=== PATIENT | male | born 1980 | race Caucasian/White ===

== ENCOUNTER 2019-11-19 08:03 | Outpatient (CLI) | payer OTHER, SELFPAY ==
--- NOTE | ~2019-11-19 | MR_ITS ---
EXAMINATION: MR shoulder RT wo con DATE: 11/19/2019 08:48 INDICATION: Posttraumatic right shoulder pain, weakness and instability. Osteoarthritis. TECHNIQUE: Magnetic resonance imaging (MRI) of the right shoulder was performed without intravenous contrast. Se quences included axial PD-weighted FS FSE, coronal oblique PD-weighted FS FSE, coronal oblique T2-charla ghted FS FSE, sagittal PD-weighted FS FSE, and sagittal T1-weighted SE. COMPARISON: Right shoulder radiographs dated 11/18/2019 FINDINGS: Coracoacromial arch: The acromion undersurface is minimally curved in morphology (type I-II). The coracoacromial ligament is normal. Acromioclavicular joint is normal. Rotator cuff: Mild tendinopathy without discrete tear at the distal supraspinatus tendon and conjoined portion of t he supraspinatus and infraspinatus tendons. The teres minor and subscapularis tendons are normal. Nor mal rotator cuff muscle bulk and signal. 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 There is degeneration of the anteroinferior labrum which is diminutive with carter rphous increased signal. More clearly defined linear fluid filled tear at the 1:00-11:00 position of the superior glenoid labrum with more macerated appearing tear centered at the 10:30 position of the posterior superior labrum. There are foci of susceptibility artifact along the inferior rim of the gl enoid suggesting possible prior labral repair. Region of full/near full-thickness cartilage loss daisha g the anteroinferior quadrant of the glenoid with mild underlying subarticular cystic change. Additio nal partial thickness cartilage loss involving greater than 50% the cartilage thickness along the inf eromedial aspect of the humeral head are also tiny marginal osteophytes. Mild tendinopathy at the gle nohumeral and curving of the long head of the biceps tendon which is otherwise normal. Fluid: Physiologic amount of fluid in the glenohumeral joint space. Mild synovitis at the posterior, axillar y and deep subscapular recess of the joint space. Small amount of fluid in the long head biceps tendo n sheath which is at the upper limits of normal and cannot exclude mild bicipital tenosynovitis..No l oose osteochondral bodies. Small amount of fluid in the subacromial/subdeltoid bursa consistent with mild bursitis. Bones: No fracture or pathologic marrow replacing process. IMPRESSION: 1. Mild to moderate glenohumeral osteoarthritis with regional high-grade chondral malacia along the a nteroinferior glenoid with change of likely prior inferior labral repair which appears grossly intact with mild degeneration anteroinferiorly. Correlate with surgical history. 2. 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 3. Mild tendinopathy without discrete tear of the supraspinatus and conjoined supraspinatus/infraspin atus tendons. Reviewed, dictated and finalized at location A. O SUPERVISOR IMPRESSION: 1. Mild to moderate glenohumeral osteoarthritis with regional high-grade chondr al malacia along the anteroinferior glenoid with change of likely prior inferio r labral repair which appears grossly intact with mild degeneration anteroinfer iorly. Correlate with surgical history. 2. Tear of the superior to posterior superior glenoid labrum with likely develo pmental variant Stephanie complex conifer absence of the anterosuperior labrum. 3. Mild tendinopathy without discrete tear of the supraspinatus and conjoined s upraspinatus/infraspinatus tendons.
== END 2019-11-19 08:04 ==
PROVIDERS: Visit Provider Orthopaedic Surgery
DX: M19.111 Post-traumatic osteoarthritis, right shoulder (principal); S43.431A Superior glenoid labrum lesion of right shoulder, initial encounter; X58.XXXA Exposure to other specified factors, initial encounter
CPT/HCPCS: 73221

== ENCOUNTER 2020-11-13 14:16 | Outpatient (CLI) | payer BC, SELFPAY ==
[2020-11-13 14:45] LABS: Hematocrit 42.4 % (42.0-52.0); Hemoglobin 14.8 g/dL (14.0-18.0)
== END 2020-11-13 14:17 | disposition home or self-care (01) ==
LOC: ANHSURGERY 14:20
PROVIDERS: Anesthesiology; Visit Provider Orthopaedic Surgery
DX: Z86.2 Personal history of diseases of the blood and blood-forming organs and certain disorders involving the immune mechanism (principal)
CPT/HCPCS: 36415; 85014; 85018

== ENCOUNTER → 2020-11-14 00:38 | Outpatient (CLI) | payer BC, SELFPAY ==
[2020-11-14 20:38] LABS: SARS-CoV-2 RNA PCR Negative
== END ==
PROVIDERS: Visit Provider Orthopaedic Surgery
DX: Z01.812 Encounter for preprocedural laboratory examination (principal); Z20.822 Contact with and (suspected) exposure to COVID-19
CPT/HCPCS: C9803; U0003; U0005

== ENCOUNTER 2020-11-17 01:33 | Day surgery (SDC) | payer BC, SELFPAY ==
[2020-11-12 16:15] VITALS: BMI 26.6
--- NOTE | 2020-11-16 11:03 | WPDANESEPPF ---
Anes - Initial Pre Proc Eval Procedure: Operation Date: 11/17/20 12:00 Proposed Procedures p Arthroscopic Debridement Of Right Shoulder And Labrum - Jared Junior MD s Mini Open Bicep Tenodesis, Possible Microfracture, Proceed As Indicated - Jared Junior MD Date/Time: 11/16/20 11:03 Surgeon: Jared Junior MD Pre Op Diagnosis: Post Traumatic OA Right Shoulder Patient Data Age: 40 Gender: M Height: 1.73 m Weight: 79.38 kg Allergies Allergy/AdvReac Type Severity Reaction Status Date / Time No Known Allergies Allergy Verified 11/17/20 10:52 Home Medications Medication Instructions Recorded Confirmed Type acetaminophen 500 mg tablet 1,000 mg PO Q6H PRN 11/18/19 11/12/20 History naproxen sodium 220 mg capsule 440 mg PO BID PRN 11/18/19 11/12/20 History [id number]-vit K 1 tablet PO DAILY 11/12/20 11/12/20 History [Adults Multivitamin] omeprazole 20 mg PO DAILY PRN 11/12/20 11/12/20 History Patient hx anesthesia problems: none Family hx anesthesia problems: none PMFSH Past Medical History Medical History Osteoarthritis of right shoulder Post-traumatic osteoarthritis, right shoulder SLAP lesion of right shoulder Surgical History Surgical History History of lumbar fusion (~11/2016) History of shoulder surgery (~1996) Family History Family History Grandparent Family history of Alzheimer's disease Family history of coronary artery disease Mother Patient's mother is in good health Other Carcinoma of colon Family history of gastrointestinal disorder Family history of ulcerative colitis Social History Social History Smoking packs per day: 1 Smoking cigarettes per day: 20.0 Years smoked: 15 Smoking pack-years: 15.00 Smoking status: Former smoker Tobacco type: cigarettes and e-cigarettes/vaping Additional smoking assessment comments: currently vapes Alcohol intake: current Drinks per week: 6 Alcohol use details: beer Substance use: never Last use: 10-09-2015 Living arrangements: alone Spiritual care concerns: No Anes - Eval Final PreProcedure Day of Procedure 11/16/20 11:03 Patient weight: overweight Heart: regular rate and rhythm Lungs: clear to auscultation and normal air movement Airway: Mallampati scale class II Neurological: alert and oriented Last oral intake: >/= 8 hours ASA classification: II Emergent: no Anesthetic plan: proceed Anesthesia type and monitoring: general LMA and ETT Informed Consent: The patient's anesthetic plan and its attendant risks and benefits were discussed with the patient/family/POA. Questions were solicited and answers provided to the satisfaction of the patient/family/POA.
--- NOTE | 2020-11-16 11:03 | WPDANESPNB ---
Anes - Peripheral Nerve Block Date/Time: 11/16/20 11:03 I have discussed with the patient/family/POA the placement of a peripheral nerve block for post-operative pain management, including associated risks, benefits, complications, and side effects. Alternative methods of post-operative analgesia were detailed. Questions were solicited and answers provided to the satisfaction of the patient/family/POA. Time-Out: A pre-procedural Time-Out was completed immediately before starting the procedure and confirmed: Patient Identification, Site, Procedure, Patient Position and the Availability of Requisite Equipment. Clinical Indications: Acute post-operative pain management requested by the operative surgeon. Nerve Block Insertion Note Anes-nerve block: supraclavicular right Patient position: supine Skin prep: chlorhexidine Needle: 22 gauge, stimulating, insulated echogenic needle. Needle length: 80 mm Technique: ultrasound (in plane) Injectate: bupivacaine 0.5% with epi 5 mcg/ml (20cc) Observations: tolerated well Complications: none Procedure start time:: 1125 Procedure end time:: 1130
[2020-11-17] VITALS (8 sets, daily range): BP systolic 102–131; BP diastolic 58–78; PULSE 53–67; RESP 12–20; TEMP 36.5–36.8; O2SAT 95–100
--- NOTE | 2020-11-17 07:13 | WPDHPUPDATE1 ---
History and Physical Update Update Date/Time: 11/17/20 07:13 History and Physical has been reviewed, including an updated exam of the patient. There are NO changes in the patient's condition. Risks, benefits, and alternatives have been discussed and questions answered. Patient agrees to proceed with procedure.
[2020-11-17] MEDS: ACETAMINOPHEN 500 MG TABLET 1000 MG PO (10:36)
[2020-11-17] MEDS: KETOROLAC 15 MG/ML VIAL (*BKC) IV PUSH (10:37)
[2020-11-17] MEDS: LACTATED RINGERS 1,000 ML 30 ML IV CONT ×2 (10:40→14:04)
[2020-11-17] MEDS: ceFAZolin 2 GM/D5W 50 ML 2 GM/50 ML BAG IVPB (11:44)
--- NOTE | 2020-11-17 14:07 | PM.PROC ---
Procedure Note - Detailed Date of procedure: 11/17/20 Pre-op diagnosis: Post Traumatic OA Right Shoulder Post-op diagnosis: other (1. Posttraumatic shoulder arthritis 2. Slap tear with biceps tendinosis 3.Impingement syndrome shoulder) Procedure performed: 1. Arthrosocopic labral debridement including anterior and posterior labrum, and glenoid chondroplasty with microfracture 2. Arthroscopic subacromial decompression. 3. Mini open biceps tenodesis. Description of procedure: Posttraumatic arthritis status post Bankart repair many years ago. The arthroscopic findings were consistent with the MRI. Examination under anesthesia was consistent with the preoperative clinical examination. No gross instability, nor remarkable abnormal findings observed. Exposed bone with arthritis on the glenoid primarily at the anterior inferior quadrant. Daky-gp-[id number] changes on the humerus. Extensive degenerative tearing of the anterior posterior and superior labrum. Biceps was released and the labrum was carefully debrided. Microfracture was performed at the anterior inferior glenoid. Rotator cuff was of in very good shape both on the articular and bursal side. The subscapularis was normal. No evidence of subcoracoid impingement. Moderate synovitis posterior inferior. Partial synovectomy was performed. Overall the capsule was not overly contracted and no further capsule releases were required. Bursectomy was performed with subacromial decompression. During the mini open biceps it was clear that the biceps was very flattened and distorted at the intra-articular/ intertubercular area. Subpectoral tenodesis was performed through bone tunnels. [facility] Surgeon: Jared Junior MD Diesel Machinist: Sonja Graves PA-C Estimated blood loss (mL): 10 Complications: None Condition: stable Disposition: PACU Findings: Physician golf player assistant, Sonja Graves PA-C, required for surgery; including patient positioning, draping, arthroscopic camera operation, maintaining instrument position, suture shuttle retrieval, wound closure, and dressing and sling placement. Operative details: Patient was given an interscalene block in the holding area. Preoperative antibiotics were given. The patient was brought to the operating room. Careful positioning in the beach chair position was accomplished. The head neck were carefully positioned. The shoulder was examined. The shoulder was prepped and draped in the usual sterile fashion. Standard posterior and anterior arthroscopic portals were established. The shoulder was inspected. Degenerative findings as described above. Labral debridement 360? with microfracture and chondroplasty of the anterior inferior glenoid. Grade 2/Iii chondromalacia on the humerus. Primarily with blistering and thinning of the cartilage. Hill-Sachs defect and irregularity at the posterior humeral head confirmed. The rotator cuff was largely normal. The subscapularis was normal. A window at the rotator interval was created. There was no evidence of impingement on the coracoid with internal rotation and adduction. The biceps was released from the superior labrum. Attention was turned to the subacromial space. A complete bursectomy was performed. An accessory lateral portal was created. The acromion was clearly visualized. Careful acromioplasty was performed utilizing views from both lateral and posterior. Loose bone fragments were carefully irrigated from the joint. The arthroscopic instruments were removed. An axillary incision was created at the pectoralis major insertion. The interval between the pectoralis and the short head of the biceps was dissected. The long head was identified. A retractor was placed at the pectoralis. The biceps was delivered into the wound. A Krackow stitch was placed using #2 Orthocord suture at the musculotendinous junction. The 7.5 mm acInOpen reamer was used to ream a unicortical hole just proximal to the pect
[2020-11-17] MEDS: fentaNYL CITRATE INJ (*CRX) 100 MCG/2 ML VIAL 25 MCG IV PUSH ×4 (14:19→14:26)
[2020-11-17] MEDS: HYDROmorphone HCL INJ (*CRX) 1 MG/ML SYR 0.25 MG IV PUSH ×2 (14:27→14:32)
== END 2020-11-17 16:05 | disposition home or self-care (01) ==
PROVIDERS: Visit Provider Orthopaedic Surgery
PROC: (CPT 29805; principal; 2020-11-17 12:00)
PROC: (CPT 24341; 2020-11-17 12:00)
DX: M19.111 Post-traumatic osteoarthritis, right shoulder (principal); M75.81 Other shoulder lesions, right shoulder; M75.41 Impingement syndrome of right shoulder; G89.18 Other acute postprocedural pain; Z98.1 Arthrodesis status; F17.290 Nicotine dependence, other tobacco product, uncomplicated
CPT/HCPCS: 29823; 23430; 64415; A4565; A9270; J0690; J1100; J1170; J1885; J2250; J2405; J2704; J2710; J3010; J7120

== ENCOUNTER → 2021-02-25 11:04 | Outpatient (REF) | payer BC, SELFPAY | LOC: ANHLAB 11:04 | PROVIDERS: Visit Provider Nurse Practitioner | DX: L72.0 Epidermal cyst (principal) | CPT/HCPCS: 88304 ==

== ENCOUNTER 2021-06-30 14:39 | Outpatient (CLI) | payer BC, SELFPAY ==
[2021-06-30 19:32] LABS: Hematocrit 22.4 % (42.0-52.0); Mean Corpuscular HGB Conc 26.8 g/dl (32-36); Mean Corpuscular Hemoglobin 15.7 pg (26-34); Mean Corpuscular Volume 58.6 fl (80-100); Mean Platelet Volume 9.9 fl (7.4-10.4); Platelet Count Result 326 k/mm3 (150-375); Red Blood Count 3.82 M/mm3 (4.6-6.20); Red Cell Distribution Width 20.4 % (11.5-14.5); White Blood Count 4.7 K/mm3 (4.5-10.0)
[2021-06-30 19:40] LABS: Alanine Aminotransferase 14 U/L (4-50); Albumin Level 4.6 g/dL (3.5-5.1); Alkaline Phosphatase 96 U/L (38-126); Anion Gap 9 mmol/L (8-16); Aspartate Amino Transferase 31 U/L (17-59); Bilirubin,Total 0.5 mg/dL (0.2-1.3); Blood Urea Nitrogen 5 mg/dL (9-20); Calcium 9.3 mg/dL (8.4-10.2); Carbon Dioxide 27 mmol/L (22-30); Chloride 102 mmol/L (98-107); Cholesterol 176 mg/dL (0-200); Estimated Glomerular Filt Rate > 60; Glucose 101 mg/dL (65-110); HDL Direct 79 mg/dL; Potassium 4.2 mmol/L (3.4-5.0); Sodium 138 mmol/L (137-145); Triglycerides 92 mg/dL (<150)
[2021-06-30 19:51] LABS: LDL Cholesterol Direct 81 mg/dL
== END 2021-06-30 14:40 | disposition home or self-care (01) ==
LOC: ANHBWCLAB 14:40
PROVIDERS: PCP Family Medicine; Visit Provider Family Medicine
DX: F41.9 Anxiety disorder, unspecified (principal); Z00.00 Encounter for general adult medical examination without abnormal findings; K62.5 Hemorrhage of anus and rectum
CPT/HCPCS: 36415; 80053; 80061; 82607; 84443; 85027

== ENCOUNTER 2021-07-01 14:47 | Observation (INO) | payer BC, SELFPAY ==
[2021-07-01] VITALS (17 sets, daily range): BP systolic 120–148; BP diastolic 63–87; PULSE 64–98; RESP 16–20; TEMP 35.9–37.1; O2SAT 98–100; BMI 26.3
--- NOTE | ~2021-07-01 | NM_ITS ---
EXAMINATION: NM GI bleeding DATE: 07/02/2021 11:12 INDICATION: Gastrointestinal hemorrhage. TECHNIQUE: 25.8 mCi Tc 99m in vitro labeled red cells was administered intravenously. Scintigraphic images of the abdomen were obtained for one hour. COMPARISON: None. FINDINGS: No pattern of abnormal activity is seen in the abdomen or pelvis to suggest gastrointestina l hemorrhage. IMPRESSION: 1. No evidence of active gastrointestinal hemorrhage. Reviewed, dictated and finalized at location A.
[2021-07-01 15:29] LABS: Basophils Absolute Auto 0.1 K/mm3 (0.0-0.1); Basophils Percent Auto 1.1 % (0.2-1.2); Eosinophils Absolute Auto 0.2 K/mm3 (0-0.3); Immature Granulocyte Absolute 0.03 K/mm3 (0.00-0.031); Immature Granulocyte Percent A 0.5 % (0-0.5); Lymphocytes Absolute Auto 2.18 K/mm3 (0.9-3.2); Lymphocytes Percent Auto 34.4 % (18.3-44.2); Mean Corpuscular HGB Conc 27.4 g/dl (32-36); Mean Corpuscular Volume 58.5 fl (80-100); Monocytes Absolute Auto 0.7 K/mm3 (0.1-0.6); Monocytes Percent Auto 10.6 % (2.6-8.5); Neutrophils Absolute Auto 3.2 K/mm3 (1.3-6.7); Neutrophils Percent Auto 50.4 % (45.5-73.1); Platelet Count Result 258 k/mm3 (150-375); Red Blood Count 3.18 M/mm3 (4.6-6.20); Red Cell Distribution Width 19.9 % (11.5-14.5); White Blood Count 6.3 K/mm3 (4.5-10.0)
[2021-07-01 15:35] LABS: Hematocrit 18.6 % (42.0-52.0); Hemoglobin 5.1 g/dL (14.0-18.0)
[2021-07-01 15:38] LABS: Anion Gap 8 mmol/L (8-16); Blood Urea Nitrogen 3 mg/dL (9-20); Calcium 8.5 mg/dL (8.4-10.2); Carbon Dioxide 25 mmol/L (22-30); Chloride 97 mmol/L (98-107); Estimated CRCL calculation 81 ml/min; Estimated Glomerular Filt Rate > 60; Glucose 103 mg/dL (65-110); Potassium 3.1 mmol/L (3.4-5.0); Sodium 130 mmol/L (137-145)
[2021-07-01 16:07] LABS: Iron < 10 ug/dL (49-181)
[2021-07-01 16:17] LABS: Percent Iron Saturation 2 % (20-50)
--- NOTE | 2021-07-01 16:20 | ED.RECABL ---
HPI - Recheck/Abnormal Lab/Rx General Chief Complaint: Recheck/Abnormal Lab/Rx Stated Complaint: sent for blood transfusion Time Seen by Provider: 07/01/21 15:09 Source: patient Mode of arrival: ambulatory Limitations: no limitations History of Present Illness HPI narrative: 41-year-old male Here for follow-up lab draw from yesterday showing low hemoglobin He has a long history of anemia which has occasionally required blood transfusions He reports that he has had upper and lower endoscopies to evaluate this in the past and apart from a hemorrhoid and some esophageal inflammation nothing else has been found as far as he knows He also has had a coagulopathy in the past, the cause of which appears to have been a little obscure as well, and got treated with vitamin K and FFP He had a new patient appointment yesterday and was called yesterday evening due to a low hemoglobin of 6 and asked to come to the ED which she is doing now today He does not feel ill, complaining only of perhaps mild fatigue He has not had any hematemesis, any melena, or any hematochezia He does not complain of any abdominal symptoms or distress Related Data Home Medications Medication Instructions Recorded Confirmed acetaminophen 500 mg tablet 1,000 mg PO Q6H PRN 11/18/19 02/11/21 Adults Multivitamin 1 tablet PO DAILY 11/12/20 02/11/21 omeprazole 20 mg PO DAILY PRN 11/12/20 02/11/21 Allergies Allergy/AdvReac Type Severity Reaction Status Date / Time No Known Allergies Allergy Verified 06/30/21 13:52 Review of Systems Review of Systems: All systems reviewed & are unremarkable except as noted in HPI and below Constitutional: Constitutional: Reports no additional constitutional complaints, Denies chills, Denies fever(s) and Denies headache(s) Eyes: Eyes: Reports no additional eye complaints and Denies change in vision ENT: Denies headache(s) and Denies sore throat Cardiovascular: Cardiovascular: Denies chest pain and Denies dyspnea Respiratory: Respiratory: Denies cough and Denies dyspnea Gastrointestinal: Gastrointestinal: Denies abdominal pain, Denies diarrhea and Denies vomiting Genitourinary: Genitourinary: Denies dysuria and Denies urinary frequency Musculoskeletal: Musculoskeletal: Denies deformity, Denies arthralgias, Denies joint swelling and Denies numbness Integumentary/Breasts: Skin/Breast: Denies rash and Denies wounds Neurologic: Denies headache(s), Denies focal weakness and Denies numbness Psychiatric: Psychiatric: Reports no additional psychiatric complaints Endocrine: Endocrine: Reports no additional endocrine complaints Hematologic/Lymphatic: Hematologic/Lymphatic: Reports no additional hematologic/lymphatic complaints Allergic/Immunologic: Allergic/Immunologic: Reports no additional allergic/immunologic complaints PMF Past Medical History Medical History Osteoarthritis of right shoulder Post-traumatic osteoarthritis, right shoulder SLAP lesion of right shoulder Surgical History Surgical History History of lumbar fusion (~11/2016) History of shoulder surgery (~1996) Family History Family History Grandparent Family history of Alzheimer's disease Family history of coronary artery disease Mother Patient's mother is in good health Other Carcinoma of colon Family history of gastrointestinal disorder Family history of ulcerative colitis Social History Social History Smoking packs per day: 1 Smoking cigarettes per day: 20.0 Years smoked: 15 Smoking pack-years: 15.00 Smoking status: Former smoker Tobacco type: cigarettes and e-cigarettes/vaping Additional smoking assessment comments: currently vapes Alcohol intake: current Drinks per week: 6 Alcohol use details: be
[2021-07-01 16:25] LABS: Hypochromasia 3+ (NORMAL); Platelet Estimate Adequate (Adequate)
[2021-07-01 16:27] LABS: Poikilocytosis 1+ (NORMAL); Schistocytes 1+ (NORMAL); Sickle Cells 1+ (NORMAL)
[2021-07-01 16:35] LABS: INR 1.5; Prothrombin Time 17.9 Seconds (11.1-14.7)
[2021-07-01 16:37] LABS: Partial Thromboplastin Time 31.1 SECONDS (22.3-36.8)
[2021-07-01 16:45] LABS: Ferritin 7.03 ng/mL (17.9-464); Immature Reticulocyte Fraction 7.8 % (3.0-15.9); Reticulocyte Hemoglobin Conten 14.4 pg (28.2-35.7); Reticulocyte Percent 1.11 % (0.7-4.3); Reticulocytes Absolute 0.03 B/L (32.2-175.7)
[2021-07-01] MEDS: PANTOPRAZOLE SODIUM IV 40 MG VIAL 80 MG IV PUSH (16:49)
[2021-07-01] MEDS: POTASSIUM CHLORIDE 20 MEQ PACKET (FOR LIQUID) 40 MEQ PO (17:54)
[2021-07-01] MEDS: SODIUM CHLORIDE 0.9% IV 250 ML 30 ML IV CONT (17:55)
[2021-07-01] MEDS: TUBING, BLOOD SET 1 EACH XX (17:55)
[2021-07-01] MEDS: POTASSIUM CHLORIDE 20 MEQ PACKET (FOR LIQUID) 40 MEQ (17:55)
[2021-07-01] MEDS: PHYTONADIONE INJ 10 MG/ML AMP IM (18:16)
--- NOTE | 2021-07-01 19:20 | PM.IMHP ---
H&P: HPI History of Present Illness Date/Time: 07/01/21 19:20This is a 41-year-old male patient who has had a past medical history of having anemia with blood transfusions in the past. The patient stated that he went for an office visit to establish care with a new primary care doctor in they kevyn some labs and called him late last night tell him that his hemoglobin was low. The patient has had an os could PEs in the past. In the past he has been admitted for coagulopathy and was given vitamin K and FFP. The patient also has been having occasional bloody stool. He has been treated for iron deficiency anemia and has had some hemorrhoids as well. Several years ago it was felt that his coagulopathy was due to using K2 however the patient states that he no longer uses the synthetic marijuana. The patient has no abdominal pain but is very anxious. He stated that his legs for very restless and he has difficulty sleeping. Patient's hemoglobin was noted to be 5.1 hematocrit 18.6. He is receiving a blood transfusion At this point. His ferritin is low at 7.03 iron is low at 10 iron saturation is low at 2. the patient stated that he takes omeprazole for gastritis but does not take any iron. His potassium was found to be 3.1 and was supplemented in the emergency room. The patient's sodium was also 130. Patient was given IV Protonix,and potassium, Chief Complaint: Abnormal lab with anemia Review of Systems Review of Systems: All systems reviewed & are unremarkable except as noted in HPI and below Constitutional: Constitutional: Reports as per HPI and Reports no additional constitutional complaints Eyes: Eyes: Reports as per HPI and Reports no additional eye complaints ENT: Reports system reviewed and no additional complaints, except as documented and Reports Normal hearing present Cardiovascular: Cardiovascular: Reports no additional cardiovascular complaints Respiratory: Respiratory: Reports no additional respiratory complaints and Reports no additional respiratory complaints Gastrointestinal: Gastrointestinal: Reports as per HPI and Reports no additional gastrointestinal complaints Musculoskeletal: Musculoskeletal: Reports no additional musculoskeletal complaints Integumentary/Breasts: Skin/Breast: Reports system reviewed and no additional complaints, except as docu and Reports as per HPI Neurologic: Reports system reviewed and no additional complaints, except as documented, Reports as per HPI and Reports Normal hearing present Psychiatric: Psychiatric: Reports no additional psychiatric complaints and Reports as per HPI Endocrine: Endocrine: Reports no additional endocrine complaints Hematologic/Lymphatic: Hematologic/Lymphatic: Reports no additional hematologic/lymphatic complaints Allergic/Immunologic: Allergic/Immunologic: Reports no additional allergic/immunologic complaints [facility] Past Medical History Medical History (Updated 07/01/21 @ 19:54 by Christine Salomon NP) Anxiety Osteoarthritis of right shoulder Post-traumatic osteoarthritis, right shoulder SLAP lesion of right shoulder Surgical History Surgical History (Updated 07/01/21 @ 19:35 by Christine Salomon NP) History of lumbar fusion (~11/2016) History of removal of pigmented skin lesion History of shoulder surgery (~1996) right neck Family History Family History Grandparent Family history of Alzheimer's disease Family history of coronary artery disease Mother Patient's mother is in good health Other Carcinoma of colon Family history of gastrointestinal disorder Family history of ulcerative colitis Social History Social History (Updated 07/01/21 @ 19:38 by Christine Salomon NP) Social History: the patient stated that he quit smoking cigarettes but he still vapes. The patient uses marijuana. The patient lives with his significant other. He has 1 son. His desires are to be a full code and
--- NOTE | 2021-07-01 19:56 | ADMGEN ---
This patient, Rogerio Reyes, was admitted to IMU Room 204-01. Patient/family oriented to hospital policies and general routines including ID bracelet, bed and alarms, visiting hours, pain management, procedures, bathroom and other care routines, personal items, smoking policy, room service/diet, and visiting hours. Information on how to activate the Rapid Response Team has been discussed. Patient/Family are encouraged to report perceived risks to care and to ask questions if they do not understand what they are told or what they should do.
[2021-07-01] MEDS: ALPRAZolam (*CRX) 0.25 MG TABLET PO (20:04)
[2021-07-02] VITALS (8 sets, daily range): BP systolic 126–154; BP diastolic 64–88; PULSE 55–83; RESP 20; TEMP 36.3–36.8; O2SAT 98–100
[2021-07-02 00:50] LABS: Hematocrit 24.1 % (42.0-52.0); Hemoglobin 7.2 g/dL (14.0-18.0)
[2021-07-02] MEDS: traZODone HCL 50 MG TABLET PO (00:57)
[2021-07-02 01:01] LABS: Anion Gap 8 mmol/L (8-16); Blood Urea Nitrogen 5 mg/dL (9-20); Calcium 8.9 mg/dL (8.4-10.2); Carbon Dioxide 23 mmol/L (22-30); Chloride 105 mmol/L (98-107); Estimated CRCL calculation 90 ml/min; Estimated Glomerular Filt Rate > 60; Glucose 98 mg/dL (65-110); Potassium 3.8 mmol/L (3.4-5.0); Sodium 136 mmol/L (137-145)
[2021-07-02 05:11] LABS: Basophils Absolute Auto 0.1 K/mm3 (0.0-0.1); Basophils Percent Auto 1.5 % (0.2-1.2); Eosinophils Absolute Auto 0.2 K/mm3 (0-0.3); Eosinophils Percent Auto 2.7 % (0-4.4); Hematocrit 26.4 % (42.0-52.0); Hemoglobin 7.5 g/dL (14.0-18.0); Immature Granulocyte Absolute 0.01 K/mm3 (0.00-0.031); Immature Granulocyte Percent A 0.2 % (0-0.5); Lymphocytes Absolute Auto 2.22 K/mm3 (0.9-3.2); Lymphocytes Percent Auto 33.7 % (18.3-44.2); Mean Corpuscular HGB Conc 28.4 g/dl (32-36); Mean Corpuscular Hemoglobin 18.7 pg (26-34); Mean Corpuscular Volume 65.8 fl (80-100); Mean Platelet Volume 9.5 fl (7.4-10.4); Monocytes Absolute Auto 0.6 K/mm3 (0.1-0.6); Monocytes Percent Auto 8.5 % (2.6-8.5); Neutrophils Absolute Auto 3.5 K/mm3 (1.3-6.7); Neutrophils Percent Auto 53.4 % (45.5-73.1); Platelet Count Result 265 k/mm3 (150-375); Red Blood Count 4.01 M/mm3 (4.6-6.20); Red Cell Distribution Width 25.7 % (11.5-14.5); White Blood Count 6.6 K/mm3 (4.5-10.0)
[2021-07-02 05:17] LABS: Magnesium 2.1 mg/dL (1.6-2.3)
[2021-07-02 05:18] LABS: Lactic Acid Reflex 1.1 mmol/L (0.7-2.1)
[2021-07-02 05:53] LABS: Hypochromasia 2+ (NORMAL); Microcytosis 2+ (NORMAL); Platelet Estimate Adequate (Adequate)
[2021-07-02 06:22] LABS: Folic Acid 4.6 ng/mL (2.76->20)
--- NOTE | 2021-07-02 07:36 | PM.IMPN ---
Progress Note: A&P Assessment and Plan (1) Severe anemia: Code(s): D64.9 - Anemia, unspecified Status: Acute (2) Anxiety: Code(s): F41.9 - Anxiety disorder, unspecified Status: Chronic (3) Tobacco abuse: Code(s): Z72.0 - Tobacco use Status: Acute (4) Hypokalemia: Code(s): E87.6 - Hypokalemia Status: Acute Additional Plan unclear source of anemia - apparently pt has had EGD & colonoscopy in past which did not reveal bleeding source. Noted nuclear GI scan ordered, follow results. Microcytic Anemia. GI and Heme/Onc on consult. Will attempt to obtain records from prior imaging and potentially discuss scope with patient - he was previously not open to this. Time Spent With Patient Time with patient: less than 15 minutes Subjective Date/time seen: 07/02/21 07:36 no acute complaints resting comdortably Review of Systems Review of Systems: All systems reviewed & are unremarkable except as noted in HPI and below Exam Neck: Neck: no JVD Resp: Effort & Inspection: normal respiratory effort Auscultation: clear to auscultation bilaterally Cardio: Rate: regular rate Rhythm: regular rhythm GI: GI Palp: Yes Soft to palpation and No Tenderness to palpation present (GI) Objective Data Vital Signs Vital Signs: Vital Signs - 24 hr 07/01/21 14:54 07/01/21 17:43 07/01/21 17:52 Temperature 98.8 F 97.8 F Pulse Rate 80 71 72 Respiratory Rate 18 18 18 Blood Pressure 128/70 121/75 120/76 Pulse Oximetry 99 100 100 07/01/21 17:59 07/01/21 18:02 07/01/21 18:22 Temperature 98.1 F Pulse Rate 78 Respiratory Rate 16 Blood Pressure 123/76 123/76 125/85 Pulse Oximetry 98 07/01/21 18:31 07/01/21 18:46 07/01/21 19:30 Temperature 98.4 F Pulse Rate 64 Respiratory Rate 20 Blood Pressure 143/73 H 122/79 138/64 Pulse Oximetry 100 07/01/21 20:00 07/01/21 20:44 07/01/21 21:02 Temperature 97 F L 97.6 F Pulse Rate 78 78 98 Respiratory Rate 20 20 Blood Pressure 133/66 121/77 Pulse Oximetry 100 100 07/01/21 22:00 07/01/21 22:02 07/01/21 23:02 Temperature 96.6 F L 97.0 F L Pulse Rate 72 78 78 Respiratory Rate 20 20 Blood Pressure 148/67 H 137/87 Pulse Oximetry 99 100 07/01/21 23:06 07/01/21 23:29 07/02/21 00:00 Temperature 97.0 F L 97 F L Pulse Rate 78 78 62 Respiratory Rate 20 20 20 Blood Pressure 137/87 144/63 H Pulse Oximetry 100 100 100 07/02/21 02:00 07/02/21 03:27 07/02/21 04:00 Temperature 98.0 F Pulse Rate 60 55 L 62 Respiratory Rate 20 20 Blood Pressure 126/68 Pulse Oximetry 100 100 07/02/21 05:30 Temperature Pulse Rate 66 Respiratory Rate Blood Pressure Pulse Oximetry Intake/Output Intake/Output: Intake & Output 06/29/21 06/30/21 07/01/21 07/02/21 23:59 23:59 23:59 23:59 Intake Total 700 150 Output Total 500 500 Balance 200 -350 Meds/Results Medications: Active Medications Generic Name Dose Route Start Last Admin Trade Name Freq PRN Reason Stop Dose Admin Acetaminophen 650 mg 07/01/21 15:54 Acetaminophen 325 Mg Tablet PO Q4H PRN Mild Pain (1-3) or Fever Alprazolam 0.25 mg 07/01/21 19:19 07/01/21 20:04 Alprazolam (*Crx) 0.25 Mg Tablet PO 0.25 mg TID PRN Administration Anxiety Sodium Chloride 1,000 mls @ 125 mls/hr 07/01/21 16:10 Normal Saline Iv IV CONT .Q8H CARMELITA Ondansetron HCl 4 mg 07/01/21 15:54 Ondansetron Inj 4 Mg/2 Ml Vial IV PUSH Q4H PRN Nausea Pantoprazole Sodium 40 mg 07/02/21 09:00 Pantoprazole Sodium Iv 40 Mg Vial IV PUSH Q12HR CARMELITA Trazodone HCl 50 mg 07/01/21 19:20 07/02/21 00:57 Trazodone Hcl 50 Mg Tablet PO 50 mg HS PRN Administration Insomnia Labs Labs: Laboratory Results - last 24 hr 07/01/21 07/01/21 07/01/21 15:13 15:15 15:15 WBC 6.3 RBC 3.18 L Hgb 5.1 L* Hct 18.6 L* MCV 58.5 L MCH 16.0 L MCHC 27.4 L RDW 19.9 H Plt Count
[2021-07-02 08:41] LABS: Hemoglobin 7.5 g/dL (14.0-18.0)
--- NOTE | 2021-07-02 09:30 | WPDGICN ---
Assessment and Plan Assessment and plan (1) Iron deficiency: Code(s): E61.1 - Iron deficiency Status: Acute Assessment and Plan: Iron indices suggest iron deficiency. Plan is for or colonoscopy an EGD and if necessary small-bowel capsule study after this is accomplished this can be performed as an outpatient as he has no evidence for occult acute bleeding. Patient insists on going home in doing this as an outpatient I would not disagree with this. (2) Severe anemia: Code(s): D64.9 - Anemia, unspecified Status: Acute Assessment and Plan: Patient with profound microcytic indices at the time of presentation hemoglobin of 5.1 hematocrit of 18 with a MCV less than 65. Suggesting iron deficiency. He has a low iron and elevated TIBC and a low ferritin. Cannot exclude GI blood loss. He has no specific symptoms although does have a history of significant bleeding from hemorrhoids is been corrected with surgical therapy. Outpatient colonoscopy an EGD will be arranged after he is transfuse to stable hemoglobin today. GI Consult Note Consult date/time: 07/02/21 09:30 HPI: Rogerio Reyes is a 41 year old male I am asked to see because of anemia. Patient reports he was in his usual state of health underwent routine lab test by primary care outpatient physician was found to have profound anemia with microcytic indices. Patient subsequently admitted the hospital for further evaluation and therapy. Patient denies any obvious bleeding. He denies abdominal pain. He has had no heartburn. Patient's past medical history is significant for GI bleeding in the past he underwent extensive GI evaluation more than 5 years ago. At that time was found to have hemorrhoids underwent hemorrhoid surgery. Patient states he has infrequently noticed recent blood in his stools when is had cars it was very small amount any is at noted no evidence for this blood in his stools for greater than 8 months. His family history is noncontributory. Review of Systems Review of Systems: All systems reviewed & are unremarkable except as noted in HPI and below PMFSH Past Medical History Medical History (Updated 07/01/21 @ 19:54 by Christine Salomon NP) Anxiety Osteoarthritis of right shoulder Post-traumatic osteoarthritis, right shoulder SLAP lesion of right shoulder Surgical History Surgical History (Updated 07/01/21 @ 19:35 by Christine Salomon NP) History of lumbar fusion (~11/2016) History of removal of pigmented skin lesion History of shoulder surgery (~1996) right neck Family History Family History Grandparent Family history of Alzheimer's disease Family history of coronary artery disease Mother Patient's mother is in good health Other Carcinoma of colon Family history of gastrointestinal disorder Family history of ulcerative colitis Social History Social History (Updated 07/01/21 @ 19:38 by Christine Salomon NP) Social History: the patient stated that he quit smoking cigarettes but he still vapes. The patient uses marijuana. The patient lives with his significant other. He has 1 son. His desires are to be a full code and he does not have a durable power trade mark attorney for healthcare. The patient is disabled. The patient denies any alcohol. The patient stated that he no longer uses K2 synthetic marijuana. Smoking packs per day: 1 Smoking cigarettes per day: 20.0 Years smoked: 15 Smoking pack-years: 15.00 Smoking status: Former smoker Tobacco type: cigarettes and e-cigarettes/vaping Additional smoking assessment comments: pt. vapes Alcohol intake: never Drinks per week: 6 Alcohol use details: beer Substance use: never Last use: 10-09-2015 Spiritual care concerns: No Meds Home Medications and Allergies Home Medications Medication Instructions Recorded Confirmed Type omeprazole 20 mg PO DAILY PRN 11/12/
[2021-07-02] MEDS: PANTOPRAZOLE SODIUM IV 40 MG VIAL IV PUSH (11:04)
[2021-07-02 13:28] LABS: Hemoglobin 7.6 g/dL (14.0-18.0)
[2021-07-07 06:21] LABS: Albumin 3.7 g/dL (3.8-4.8); Alpha 1 Globulin 0.3 g/dL (0.2-0.3); Alpha 2 Globulin 0.5 g/dL (0.5-0.9); Beta 1 Globulin 0.5 g/dL (0.4-0.6); Gamma Globulin 1.1 g/dL (0.8-1.7); Protein, Total 6.3 g/dL (6.1-8.1)
[2021-07-09 05:44] LABS: Creatinine, Random Urine 44 mg/dL (20-320)
--- NOTE | 2021-08-04 18:18 | PM.DS ---
DS: Admitting Diagnosis Discharge Date 07/02/21 Low hemoglobin at outside lab Admitting Diagnosis Severe anemia DS: Discharge Diagnosis Discharge Diagnosis (1) Severe anemia: Code(s): D64.9 - Anemia, unspecified Status: Acute DS: Summary Hospital Course Reason for hospitalization: Anemia on outside labs Hospital Course: Patient is a 41-year-old male with past medical history of anemia and blood transfusions with possible history of pulmonary emboli in the past. He has had issues with a low hemoglobins and been admitted for anemia in the past. He comes in having occasional bloody stool and was treated for iron deficiency anemia and hemorrhoids in the past. His hemoglobin was noted to be 5.1 iron studies consistent with iron deficiency. Plan was made for colonoscopy and EGD if necessary small-bowel capsule. The day after admission, patient said he was upset about the rate tests and being seen and workup, and so he decided to go home. I informed him that given a very high possibility of ongoing GI bleed this is a life-threatening decision and could result in shortly after leaving the hospital, he said he understood this and still wanted to leave because he did not want to spend more time waiting in the hospital. He was completely decisional, and in the room with the nurses witnessed signed out against medical advice. Status at Discharge Overall status at discharge: patient is not back to baseline Time Spent with Patient Time attestation: Total time spent providing and/or coordinating discharge services: Time spent: Less than 30 minutes Exam Narrative: Not able to do physical exam as patient is leaving against medical advice Discharge Plan Discharge Consulting providers: Oscar Mcpherson ; Antoni Dominguez ; Christine Salomon ; Jose G Evans ; Thomas Reed V. Patient Disposition: Left Against Medical Advice Patient Instructions: Anemia (DC) Discharge Medications: No Action trazodone 50 mg tablet 50 mg PO QHS PRNRF: 0 omeprazole 20 mg Capsule,Delayed Release(Dr/Ec) 20 mg PO DAILY PRN (Reason: Acid Reflux) RF: 0 ferrous sulfate 325 mg (65 mg iron) tablet,delayed release (DR/EC) 325 mg PO BID Qty: 90 RF: 1 Date of admission: 07/01/21 15:56 Primary Care Provider: Nathaniel Hebert Admitting Provider: Cassidy King Attending physician on admission: Cassidy King Condition: Stable Quality VTE Prophylaxis VTE prophylaxis: mechanical ordered
== END 2021-07-02 14:47 | disposition left against medical advice (07) ==
LOC: ANHED 16:55 → ANHIMU 18:32
PROVIDERS: Nurse Practitioner; Admitting Provider Hospitalist; Emergency Provider Emergency Medicine; PCP Family Medicine; Visit Provider Hospitalist
DX: D50.9 Iron deficiency anemia, unspecified (principal); F41.9 Anxiety disorder, unspecified; E87.6 Hypokalemia; F17.290 Nicotine dependence, other tobacco product, uncomplicated
CPT/HCPCS: 36415; 36430; 78278; 80048; 82248; 82570; 82607; 82728; 82746; 83540; 83550; 83605; 83735; 84155; 84156; 84165; 84166; 84443; 85014; 85018; 85025; 85046; 85610; 85730; 86850; 86880; 86900; 86901; 86920; 96372; 96374; 96376; 99285; A9270; A9560; C9113; G0378; G0379; J3430; J7050; P9016

== ENCOUNTER 2021-07-06 10:12 | Outpatient (CLI) | payer BC, SELFPAY ==
[2021-07-06 19:49] LABS: Basophils Absolute Auto 0.1 K/mm3 (0.0-0.1); Basophils Percent Auto 1.8 % (0.2-1.2); Eosinophils Absolute Auto 0.3 K/mm3 (0-0.3); Eosinophils Percent Auto 5.8 % (0-4.4); Hematocrit 28.9 % (42.0-52.0); Hemoglobin 7.9 g/dL (14.0-18.0); Immature Granulocyte Absolute 0.02 K/mm3 (0.00-0.031); Immature Granulocyte Percent A 0.4 % (0-0.5); Lymphocytes Absolute Auto 2.09 K/mm3 (0.9-3.2); Lymphocytes Percent Auto 42.1 % (18.3-44.2); Mean Corpuscular HGB Conc 27.3 g/dl (32-36); Mean Corpuscular Hemoglobin 18.7 pg (26-34); Mean Corpuscular Volume 68.3 fl (80-100); Mean Platelet Volume 9.4 fl (7.4-10.4); Monocytes Absolute Auto 0.6 K/mm3 (0.1-0.6); Monocytes Percent Auto 11.3 % (2.6-8.5); Neutrophils Absolute Auto 1.9 K/mm3 (1.3-6.7); Neutrophils Percent Auto 38.6 % (45.5-73.1); Platelet Count Result 458 k/mm3 (150-375); Red Blood Count 4.23 M/mm3 (4.6-6.20); Red Cell Distribution Width 29.4 % (11.5-14.5)
[2021-07-06 20:16] LABS: Anisocytosis 3+ (NORMAL); Hypochromasia 1+ (NORMAL); Platelet Estimate Increased (Adequate)
== END 2021-07-06 10:13 | disposition home or self-care (01) ==
LOC: ANHBWCLAB 10:14
PROVIDERS: PCP Family Medicine; Visit Provider Family Medicine
DX: D64.9 Anemia, unspecified (principal); K62.5 Hemorrhage of anus and rectum
CPT/HCPCS: 36415; 85025

== ENCOUNTER 2021-07-14 11:16 | Outpatient (CLI) | payer BC, SELFPAY ==
[2021-07-14 18:31] LABS: Basophils Absolute Auto 0.1 K/mm3 (0.0-0.1); Basophils Percent Auto 2.4 % (0.2-1.2); Eosinophils Absolute Auto 0.3 K/mm3 (0-0.3); Eosinophils Percent Auto 5.9 % (0-4.4); Hematocrit 34.3 % (42.0-52.0); Hemoglobin 9.7 g/dL (14.0-18.0); Immature Granulocyte Absolute 0.01 K/mm3 (0.00-0.031); Immature Granulocyte Percent A 0.2 % (0-0.5); Lymphocytes Absolute Auto 1.97 K/mm3 (0.9-3.2); Lymphocytes Percent Auto 36.6 % (18.3-44.2); Mean Corpuscular HGB Conc 28.3 g/dl (32-36); Mean Corpuscular Hemoglobin 20.6 pg (26-34); Mean Corpuscular Volume 72.8 fl (80-100); Mean Platelet Volume 9.7 fl (7.4-10.4); Monocytes Absolute Auto 0.5 K/mm3 (0.1-0.6); Monocytes Percent Auto 9.5 % (2.6-8.5); Neutrophils Absolute Auto 2.4 K/mm3 (1.3-6.7); Neutrophils Percent Auto 45.4 % (45.5-73.1); Platelet Count Result 455 k/mm3 (150-375); Red Blood Count 4.71 M/mm3 (4.6-6.20); Red Cell Distribution Width 35.1 % (11.5-14.5); White Blood Count 5.4 K/mm3 (4.5-10.0)
== END 2021-07-14 11:17 | disposition home or self-care (01) ==
LOC: ANHBWCLAB 11:18
PROVIDERS: PCP Family Medicine; Visit Provider Family Medicine
DX: D64.9 Anemia, unspecified (principal); E61.1 Iron deficiency; K62.5 Hemorrhage of anus and rectum
CPT/HCPCS: 36415; 85025

== ENCOUNTER 2021-08-12 09:36 | Outpatient (CLI) | payer BC, SELFPAY ==
[2021-08-12 18:09] LABS: Hematocrit 40.8 % (42.0-52.0)
== END 2021-08-12 09:37 | disposition home or self-care (01) ==
LOC: ANHBWCLAB 09:39
PROVIDERS: PCP Family Medicine; Visit Provider Family Medicine
DX: E61.1 Iron deficiency (principal)
CPT/HCPCS: 36415; 85014; 85018

== ENCOUNTER 2021-11-30 12:18 | Outpatient (CLI) | payer BC, SELFPAY ==
[2021-11-30 20:04] LABS: Basophils Absolute Auto 0.1 K/mm3 (0.0-0.1); Basophils Percent Auto 1.1 % (0.2-1.2); Eosinophils Absolute Auto 0.3 K/mm3 (0-0.3); Eosinophils Percent Auto 4.1 % (0-4.4); Hematocrit 30.2 % (42.0-52.0); Hemoglobin 10.1 g/dL (14.0-18.0); Immature Granulocyte Absolute 0.02 K/mm3 (0.00-0.031); Immature Granulocyte Percent A 0.3 % (0-0.5); Lymphocytes Percent Auto 25.1 % (18.3-44.2); Mean Corpuscular HGB Conc 33.4 g/dl (32-36); Mean Corpuscular Hemoglobin 31.7 pg (26-34); Mean Corpuscular Volume 94.7 fl (80-100); Mean Platelet Volume 9.6 fl (7.4-10.4); Monocytes Absolute Auto 0.4 K/mm3 (0.1-0.6); Monocytes Percent Auto 6.3 % (2.6-8.5); Neutrophils Percent Auto 63.1 % (45.5-73.1); Platelet Count Result 372 k/mm3 (150-375); Red Blood Count 3.19 M/mm3 (4.6-6.20); Red Cell Distribution Width 13.2 % (11.5-14.5); White Blood Count 6.4 K/mm3 (4.5-10.0)
== END 2021-11-30 12:19 | disposition home or self-care (01) ==
PROVIDERS: PCP Family Medicine; Visit Provider Family Medicine
DX: D64.9 Anemia, unspecified (principal)
CPT/HCPCS: 36415; 85025

== ENCOUNTER 2022-01-17 07:44 | Outpatient (CLI) | payer BC, SELFPAY ==
[2022-01-17 18:43] LABS: Hematocrit 40.1 % (42.0-52.0); Hemoglobin 13.1 g/dL (14.0-18.0); Mean Corpuscular HGB Conc 32.7 g/dl (32-36); Mean Corpuscular Hemoglobin 31.2 pg (26-34); Mean Corpuscular Volume 95.5 fl (80-100); Mean Platelet Volume 10.2 fl (7.4-10.4); Platelet Count Result 335 k/mm3 (150-375); Red Cell Distribution Width 16.1 % (11.5-14.5)
[2022-01-17 18:53] LABS: Anion Gap 6 mmol/L (8-16); Blood Urea Nitrogen 19 mg/dL (9-20); Calcium 8.4 mg/dL (8.4-10.2); Carbon Dioxide 26 mmol/L (22-30); Chloride 105 mmol/L (98-107); Estimated Glomerular Filt Rate > 60; Glucose 121 mg/dL (65-110); Potassium 4.4 mmol/L (3.4-5.0); Sodium 137 mmol/L (137-145)
== END 2022-01-17 07:45 | disposition home or self-care (01) ==
LOC: ANHBWCLAB 07:46
PROVIDERS: PCP Family Medicine; Visit Provider Family Medicine
DX: Z86.39 Personal history of other endocrine, nutritional and metabolic disease (principal); D64.9 Anemia, unspecified; K62.5 Hemorrhage of anus and rectum
CPT/HCPCS: 36415; 80048; 85027

== ENCOUNTER 2022-04-27 10:57 | Emergency (ER) | payer BC, SELFPAY ==
--- NOTE | ~2022-04-27 | CT_ITS ---
EXAMINATION: CT abdomen pelvis w con DATE: 04/27/2022 12:54 INDICATION: Right red blood in stool. Rectal bleeding. Umbilical/abdominal pain. TECHNIQUE: Computed tomography (CT) of the abdomen and pelvis was performed with 100 mL Omnipaque-300 intravenous contrast. Automated exposure control and iterative reconstruction technique were employe d. The dose-length product was 353.04 mGy-cm. COMPARISON: 02/06/2018 FINDINGS: Lung bases are clear. Heart size is normal. No pericardial or pleural effusion. Liver, gallbladder, s pleen, pancreas, bilateral adrenal glands and kidneys are normal. Normal appendix. No bowel obstructi on. Mild wall thickening in the sigmoid colon and more prominently at the distal rectum which could b e seen with colitis. Bladder is normal. No abscess or free intraperitoneal gas or fluid. No pathologi odette enlarged abdominal or pelvic lymphadenopathy. Small fat-containing umbilical hernia. L5-S1 ante rior spinal fusion with interbody fusion device. IMPRESSION: 1. Wall thickening in the sigmoid colon and more prominently at the distal rectum consistent with col itis which could be infectious, inflammatory or less likely ischemic in etiology. Reviewed, dictated and finalized at location A. IMPRESSION: 1. Wall thickening in the sigmoid colon and more prominently at the distal rect um consistent with colitis which could be infectious, inflammatory or less like ly ischemic in etiology.
[2022-04-27 10:59] VITALS: BP 114/78; PULSE 89; RESP 16; TEMP 37; O2SAT 100
--- NOTE | 2022-04-27 11:05 | ED.GIBLEED ---
HPI - GI Bleed General Chief complaint: GI Bleed Stated complaint: blood in stool Time Seen by Provider: 04/27/22 11:05 History of Present Illness HPI Narrative: Patient is a 41-year-old male with a history of rectal bleeding secondary to hemorrhoids, iron deficiency anemia, presenting to the emergency department for evaluation of bright red blood per rectum. Patient states that he has had intermittent bloody stools over the past couple of days. Patient denies any significant constipation, does report watery diarrhea. He reports intermittent abdominal cramping which is currently resolved. He denies fever, chills, nausea or vomiting. Patient was seen in the hospital approximately a year ago for similar symptoms and ultimately did require transfusion but anemia work-up was thought to be secondary to iron deficiency anemia and patient has maintained on his iron therapy and ant-acid medications. Related Data Home Medications Medication Instructions Recorded Confirmed omeprazole 20 mg capsule,delayed mg 04/27/22 release Allergies Allergy/AdvReac Type Severity Reaction Status Date / Time No Known Allergies Allergy Verified 04/27/22 11:22 Review of Systems Review of Systems: CONSTITUTIONAL: Denies fever, chills, or sweats. EYES: Denies visual changes, redness, or discharge. ENT: Denies rhinorrhea, congestion, sore throat, or otalgia. CARDIOVASCULAR: Denies chest pain, palpitations, or edema. RESPIRATORY: Denies cough or dyspnea. GASTROINTESTINAL: Denies current abdominal pain, nausea, vomiting; reports diarrhea and bright red blood per rectum GENITOURINARY: Denies dysuria or hematuria. SKIN: Denies rash or itching. MUSCULOSKELETAL: Denies back pain, joint pain, or myalgia. NEUROLOGIC: Denies headache, numbness, or weakness. 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 The patient uses marijuana. The patient lives with his significant other. He has 1 son. His desires are to be a full code and he does not have a durable power health care manager for healthcare. The patient is disabled. The patient denies any alcohol. The patient stated that he no longer uses K2 synthetic marijuana. Smoking packs per day: 1 Smoking cigarettes per day: 20.0 Years smoked: 15 Smoking pack-years: 15.00 Smoking status: Current every day smoker (vapes) Tobacco type: cigarettes and e-cigarettes/vaping Additional smoking assessment comments: pt. vapes Alcohol intake: never Drinks per week: 6 Alcohol use details: beer Substance use: never Last use: 10-09-2015 Gender identity (if verbalized by the patient): Male Spiritual care concerns: No Agree to blood products: Yes Exam Narrative: GENERAL: Awake, alert, conversant HEAD: Normocephalic, atraumatic. EYES: PERRLA and EOMI. ENT: Nares clear, no rhinorrhea or epistaxis. Mucous membranes moist. NECK: Supple. CHEST: No respiratory distress, breathing even and non labored HEART: Regular rate, sinus rhythm ABDOMEN:Non distended, non tender : Rectum: external, nonthrombosed hemorrhoi
[2022-04-27 11:31] LABS: Basophils Absolute Auto 0.1 K/mm3 (0.0-0.1); Basophils Percent Auto 1.5 % (0.2-1.2); Eosinophils Absolute Auto 0.5 K/mm3 (0-0.3); Eosinophils Percent Auto 7.4 % (0-4.4); Hematocrit 42.5 % (42.0-52.0); Hemoglobin 13.4 g/dL (14.0-18.0); Immature Granulocyte Absolute 0.01 K/mm3 (0.00-0.031); Immature Granulocyte Percent A 0.1 % (0-0.5); Lymphocytes Absolute Auto 1.96 K/mm3 (0.9-3.2); Mean Corpuscular HGB Conc 31.5 g/dl (32-36); Mean Corpuscular Hemoglobin 29.7 pg (26-34); Mean Corpuscular Volume 94.2 fl (80-100); Mean Platelet Volume 9.4 fl (7.4-10.4); Monocytes Absolute Auto 0.6 K/mm3 (0.1-0.6); Monocytes Percent Auto 8.1 % (2.6-8.5); Neutrophils Absolute Auto 3.6 K/mm3 (1.3-6.7); Neutrophils Percent Auto 53.9 % (45.5-73.1); Platelet Count Result 349 k/mm3 (150-375); Red Blood Count 4.51 M/mm3 (4.6-6.20); Red Cell Distribution Width 17.6 % (11.5-14.5); White Blood Count 6.8 K/mm3 (4.5-10.0)
[2022-04-27 11:40] LABS: Alanine Aminotransferase 26 U/L (6-50); Albumin Level 4.7 g/dL (3.5-5.1); Alkaline Phosphatase 64 U/L (38-126); Anion Gap 4 mmol/L (8-16); Aspartate Amino Transferase 30 U/L (17-59); Bilirubin,Total 0.5 mg/dL (0.2-1.3); Blood Urea Nitrogen 11 mg/dL (9-20); Calcium 8.8 mg/dL (8.4-10.2); Carbon Dioxide 31 mmol/L (22-30); Chloride 105 mmol/L (98-107); Estimated CRCL calculation 84 ml/min; Estimated Glomerular Filt Rate > 60; Glucose 97 mg/dL (65-110); Potassium 4.4 mmol/L (3.4-5.0); Sodium 140 mmol/L (137-145)
[2022-04-27 11:42] LABS: Partial Thromboplastin Time 27.7 SECONDS (22.3-36.8); Prothrombin Time 12.5 Seconds (11.1-14.7)
[2022-04-27 13:47] VITALS: BP 110/60; PULSE 61; RESP 15; O2SAT 100
== END 2022-04-27 13:49 | disposition home or self-care (01) ==
PROVIDERS: Emergency Provider Emergency Medicine; PCP Family Medicine
DX: K52.9 Noninfective gastroenteritis and colitis, unspecified (principal); F17.210 Nicotine dependence, cigarettes, uncomplicated; M19.90 Unspecified osteoarthritis, unspecified site; F41.9 Anxiety disorder, unspecified
CPT/HCPCS: 36415; 74177; 80053; 85025; 85610; 85730; 86850; 86900; 86901; 99284; Q9967

== ENCOUNTER 2023-03-21 12:14 | Outpatient (CLI) | payer OTHER, SELFPAY ==
[2023-03-21 13:03] LABS: Hematocrit 21.9 % (42.0-52.0); Mean Corpuscular HGB Conc 28.8 g/dl (32-36); Mean Corpuscular Hemoglobin 19.5 pg (26-34); Mean Corpuscular Volume 67.8 fl (80-100); Mean Platelet Volume 9.3 fl (7.4-10.4); Platelet Count Result 436 k/mm3 (150-375); Red Blood Count 3.23 M/mm3 (4.6-6.20); Red Cell Distribution Width 19.9 % (11.5-14.5); White Blood Count 4.1 K/mm3 (4.5-10.0)
[2023-03-21 13:07] LABS: Hemoglobin 6.3 g/dL (14.0-18.0)
[2023-03-21 13:20] LABS: CRP < 0.5 mg/dL (<1.0); Iron 20 ug/dL (49-181)
[2023-03-21 13:24] LABS: Erythrocyte Sedimentation Rate 15 mm/hr (0-20)
[2023-03-21 13:34] LABS: Percent Iron Saturation 4 % (20-50)
[2023-03-21 14:03] LABS: Ferritin 7.22 ng/mL (17.9-464)
== END 2023-03-21 12:15 | disposition home or self-care (01) ==
PROVIDERS: PCP Family Medicine; Referring Provider Family Medicine; Visit Provider Nurse Practitioner
DX: K52.9 Noninfective gastroenteritis and colitis, unspecified (principal); D64.9 Anemia, unspecified; E61.1 Iron deficiency; K62.5 Hemorrhage of anus and rectum; R73.09 Other abnormal glucose
CPT/HCPCS: 36415; 82607; 82728; 82746; 83540; 83550; 84443; 85027; 85652; 86140

== ENCOUNTER 2023-03-21 16:09 | Observation (INO) | payer OTHER, SELFPAY ==
[2023-03-21] VITALS (10 sets, daily range): BP systolic 105–131; BP diastolic 51–65; PULSE 63–83; RESP 12–21; TEMP 36.3–37.1; O2SAT 98–100; BMI 25.6
--- NOTE | ~2023-03-21 | CT_ITS ---
EXAMINATION: CT abdomen pelvis w con DATE: 03/21/2023 17:46 INDICATION: rectal bleeding, anemia TECHNIQUE: Computed tomography (CT) of the abdomen and pelvis was performed with 100 mL Omnipaque-350 intravenous contrast. Automated exposure control and iterative reconstruction technique were employe d. The dose-length product was 402.63 mGy-cm. COMPARISON: 04/27/2022. FINDINGS: Lower thorax: Unremarkable Liver: Normal. Biliary/Gallbladder: Gallbladder is collapsed. No bile duct dilation. Pancreas: No mass or duct dilation. Spleen: Normal. Adrenals:No mass. Kidneys: No mass, stone, or hydronephrosis. GI tract: No small or large bowel dilation. Normal appendix. Mild diverticulosis without diverticulit is. Mesentery/Peritoneum: No ascites, mass, or free air. Retroperitoneum: No mass. Pelvis: Pelvic organs are within normal limits. Soft Tissues: Soft tissues and body wall unremarkable. Bones: No acute osseous finding. L5-S1 fusion. IMPRESSION: No acute abdominopelvic process detected Reviewed, dictated and finalized at location K.
--- NOTE | 2023-03-21 16:22 | PC.NURSE ---
Patient was seen at GI doctor today and sent to the ED for rectal bleeding.
[2023-03-21 16:53] LABS: Alanine Aminotransferase 21 U/L (6-50); Albumin Level 3.8 g/dL (3.5-5.1); Alkaline Phosphatase 62 U/L (38-126); Anion Gap 5 mmol/L (8-16); Aspartate Amino Transferase 28 U/L (17-59); Bilirubin,Total 0.5 mg/dL (0.2-1.3); Blood Urea Nitrogen 7 mg/dL (9-20); Calcium 7.8 mg/dL (8.4-10.2); Carbon Dioxide 27 mmol/L (22-30); Chloride 101 mmol/L (98-107); Estimated CRCL calculation 89 ml/min; Estimated Glomerular Filt Rate > 60; Glucose 118 mg/dL (65-110); Potassium 3.6 mmol/L (3.4-5.0); Sodium 133 mmol/L (137-145)
[2023-03-21 17:01] LABS: Basophils Absolute Auto 0.1 K/mm3 (0.0-0.1); Basophils Percent Auto 1.4 % (0.2-1.2); Eosinophils Absolute Auto 0.2 K/mm3 (0-0.3); Eosinophils Percent Auto 4.5 % (0-4.4); Hematocrit 21.7 % (42.0-52.0); Immature Granulocyte Absolute 0.01 K/mm3 (0.00-0.031); Immature Granulocyte Percent A 0.2 % (0-0.5); Lymphocytes Absolute Auto 1.59 K/mm3 (0.9-3.2); Lymphocytes Percent Auto 31.2 % (18.3-44.2); Mean Corpuscular HGB Conc 28.6 g/dl (32-36); Mean Corpuscular Hemoglobin 19.7 pg (26-34); Mean Corpuscular Volume 68.9 fl (80-100); Mean Platelet Volume 9.5 fl (7.4-10.4); Monocytes Absolute Auto 0.6 K/mm3 (0.1-0.6); Monocytes Percent Auto 11.2 % (2.6-8.5); Neutrophils Absolute Auto 2.6 K/mm3 (1.3-6.7); Neutrophils Percent Auto 51.5 % (45.5-73.1); Platelet Count Result 416 k/mm3 (150-375); Red Blood Count 3.15 M/mm3 (4.6-6.20); Red Cell Distribution Width 19.9 % (11.5-14.5); White Blood Count 5.1 K/mm3 (4.5-10.0)
[2023-03-21 17:20] LABS: Hemoglobin 6.2 g/dL (14.0-18.0)
[2023-03-21 17:21] LABS: Anisocytosis 1+ (NORMAL); Hypochromasia 1+ (NORMAL); Microcytosis 1+ (NORMAL); Platelet Estimate Increased (Adequate); Schistocytes None Seen (NORMAL); Target Cells 1+ (NORMAL)
--- NOTE | 2023-03-21 17:23 | ED.RECABL ---
HPI - Recheck/Abnormal Lab/Rx General Chief Complaint: Recheck/Abnormal Lab/Rx Stated Complaint: low H&H (6.3 per PCP) Time Seen by Provider: 03/21/23 16:21 History of Present Illness HPI narrative: Pt w/ h/o LGIB x many years w/ anemia requiring transfusions presents from GI office after being told his hemoglobin was low. He does have blood in his stool every day for years. No bleeding in between bowel movements daily. No lightheadedness or other symptoms. No nausea or vomiting Related Data Home Medications Medication Instructions Recorded Confirmed omeprazole 20 mg capsule,delayed 20 mg PO DAILY Acid Reflux 03/21/23 03/21/23 release Allergies Allergy/AdvReac Type Severity Reaction Status Date / Time No Known Allergies Allergy Verified 03/21/23 11:14 Review of Systems Review of Systems: CONST: No fever. HEENT: No sore throat C/V: No chest pain RESP: No cough GI: Reports lower GI bleed : No dysuria. M/S: No joint pain. SKIN: No rash. NEURO: [No headache or focal numbness or weakness] PSYCH: [No depression] [facility] Past Medical History Medical History Anxiety Eosinophilic esophagitis Hematochezia History of anal fissures Hx of hemorrhoids PROSPER (iron deficiency anemia) Lower abdominal tenderness Osteoarthritis of right shoulder Post-traumatic osteoarthritis, right shoulder SLAP lesion of right shoulder Surgical History Surgical History History of lumbar fusion (~11/2016) History of removal of pigmented skin lesion History of shoulder surgery (~1996) right neck Family History Family History Grandparent Family history of Alzheimer's disease Family history of coronary artery disease Mother Patient's mother is in good health Other Family history of ulcerative colitis Social History Social History Social History: the patient stated that he quit smoking cigarettes but he still vapes. The patient uses marijuana. The patient lives with his significant other. He has 1 son. His desires are to be a full code and he does not have a durable power tax associate attorney for healthcare. The patient is disabled. The patient denies any alcohol. The patient stated that he no longer uses K2 synthetic marijuana. Smoking packs per day: 1 Smoking cigarettes per day: 20.0 Years smoked: 15 Smoking pack-years: 15.00 Smoking status: Former smoker Tobacco type: cigarettes Additional smoking assessment comments: vapes every once in a while Alcohol intake: current Drinks per week: 28 Alcohol use details: beer Substance use: current Substance use type: marijuana Last use: 03/14/23 Lack of Transportation: No Lack of Food: Never True Current Housing: I Have Housing Concerned About Future Housing: No Difficulty Paying Gas/Electric Bills: No Difficulty Paying for Meds: No Currently Unemployed: No Education: Don't Know Difficulty w/ Childcare or Family Care: No Living arrangements: alone Gender identity (if verbalized by the patient): Male Spiritual care concerns: No Agree to blood products: Yes Exam Narrative: EXAMINATION OF ORGAN SYSTEMS/BODY AREAS: Constitutional: Vital signs per nursing GENERAL:[No acute distress, non-toxic appearing.] HEAD: Normal with no signs of head trauma. EYES: Pale conjunctiva ENT: Hearing grossly intact LUNGS: Nonlabored breathing. HEART: [Regular rate and rhythm] ABD: [Soft], [nontender to palpation] RECTAL: hemorrhoids without blood in vault EXT: Normal range of motion SKIN: [No rashes or lesions.] NEURO: [Alert and oriented x 3. No gross focal sensory or strength deficits.] PSYCH: Normal affect Course Vital Signs Vital signs: Vital Signs Temperature 98.4 F 03/21/23 16:14 Pulse Rate 83 03/21/23 16:14 Respi
[2023-03-21] MEDS: SODIUM CHLORIDE 0.9% IV 250 ML 30 ML IV CONT ×2 (18:04→23:55)
[2023-03-21] MEDS: TUBING, BLOOD PLUM PUMP TUBING 1 EACH XX (18:10)
--- NOTE | 2023-03-21 18:43 | ADMGEN ---
This patient, Rogerio Reyes, was admitted to 3 [facility] Surg Room 313-01. Patient/family oriented to hospital policies and general routines including ID bracelet, bed and alarms, visiting hours, pain management, procedures, bathroom and other care routines, personal items, smoking policy, room service/diet, and visiting hours. Information on how to activate the Rapid Response Team has been discussed. Patient/Family are encouraged to report perceived risks to care and to ask questions if they do not understand what they are told or what they should do. Report from [facility].
--- NOTE | 2023-03-21 22:11 | PM.IMHP ---
H&P: HPI History of Present Illness Date/Time: 03/21/23 19:30 Chief Complaint: Low hemoglobin. Narrative: This is a pleasant 42-year-old male with history of iron deficiency anemia and hemorrhoids who presented to the emergency department for evaluation of low hemoglobin. He was seen by the GI nurse practitioner at [facility] today for evaluation of rectal bleeding. He reports issues with hemorrhoids for years and it is not unusual for him to see bright red blood in the toilet following bowel movements. He has been passing more blood in his stool than usual for the last 6 months at least months and he made an appointment with GI today. Labs were drawn and he received a phone call that is hemoglobin was below 7 and he needed to come to the ER. He is currently receiving a blood transfusion and he has no specific complaints at this time. He seems to be doing markedly well with his anemia. He is quite active and denies sensations of racing heart and shortness of breath. He is occasionally a bit fatigued but not significantly so. He has not had lightheadedness or dizziness. He denies epigastric and abdominal pain. No significant bloating or belching. He denies epistaxis, hemoptysis, hematemesis, melena, and hematuria. He has been on iron and at times it seems he is inconsistent with taking the supplements. He does drink alcohol frequently but states in moderation. Denies NSAID use. it should be noted that he was admitted to the hospital in January 2018 with bleeding from multiple sites including gums, nose, and rectum. He was found to have prolonged coagulation studies including a PT of greater than 120, INR greater than 18, and a PTT of 75. He had been using synthetic marijuana for several months before that admission and it was felt that the coagulopathy was related to smoking K2. At the time my evaluation he is resting comfortably and has no specific complaints. Review of Systems Review of Systems: Twelve systems were reviewed and are negative except for as per HPI. [facility] Past Medical History Medical History (Updated 03/21/23 @ 23:10 by Laura Corley PA-C) Anxiety Eosinophilic esophagitis Gastroesophageal reflux disease Hemorrhoids History of anal fissures History of hemorrhoids Iron deficiency anemia Osteoarthritis of right shoulder Post-traumatic osteoarthritis, right shoulder SLAP lesion of right shoulder Surgical History Surgical History (Updated 03/21/23 @ 23:00 by Laura Corley PA-C) History of arthroscopy of right shoulder History of lumbar fusion (11/2016) L5-S1. History of removal of pigmented skin lesion Family History Family History Grandparent Family history of Alzheimer's disease Family history of coronary artery disease Mother Patient's mother is in good health Other Family history of ulcerative colitis Social History Social History (Updated 03/21/23 @ 23:08 by Laura Corley PA-C) Social History: Code status: Full code. Smoking packs per day: 1 Smoking cigarettes per day: 20.0 Years smoked: 15 Smoking pack-years: 15.00 Smoking status: Former smoker Tobacco type: cigarettes Additional smoking assessment comments: vapes every once in a while Alcohol intake: current Drinks per week: 28 Alcohol use details: beer Substance use: current Substance use type: marijuana Other substance usage details: The patient stated that he no longer uses K2 synthetic marijuana. Last use: 03/14/23 Lack of Transportation: No Lack of Food: Never True Current Housing: I Have Housing Concerned About Future Housing: No Difficulty Paying Gas/Electric Bills: No Difficulty Paying for Meds: No Currently Unemployed: No Education: Don't Know Difficulty w/ Childcare or Family Care: No Living arrangements: alone Spiritual care concerns: No Agree to blood products: Yes Meds Home Medication
[2023-03-22 00:04] VITALS: BP 122/59; PULSE 66; RESP 16; TEMP 36.3; O2SAT 100
--- NOTE | 2023-03-22 19:56 | PC.NURSE ---
Paper documentation exists on this patient due to [employer] System downtime on 03/22/23 from 0030 to 1930 .
--- NOTE | 2023-03-22 20:00 | PC.NURSE ---
Paper documentation exists on this patient due to [employer] System downtime on 03/22/23 from 0030 to 1930 .
--- NOTE | 2023-03-22 22:19 | CONS_ITS ---
DATE OF CONSULTATION: 03/22/2023 HISTORY OF PRESENT ILLNESS: This is a 42-year-old white male patient, I am asked to see because of profound microcytic iron-deficiency anemia. The patient has a long history of intermittent bright red blood per rectum. He describes blood is being mixed with stools. States he notices blood in his stool about every 3rd bowel movement. He states he had a colonoscopy many years ago with no specific findings. Symptoms have persisted for several years. Workup was limited by lack of insurance. He states in November of 2022, was in [place]. While in [place], he became symptomatic, lightheaded, and was admitted to the hospital with anemia. The patient was transfused. No workup was performed, he was allowed to be discharged. Ultimately, he has insurance. He recently saw a primary care service, and was referred to the GI office. The patient presented yesterday to the GI office, was found to be rather anemic and under the direction of the office was sent to the emergency room, subsequently, admitted to the hospital. The patient was found to have rather profound anemia with a hemoglobin of 6.2, hematocrit 21, MCV of 68. Iron studies were deficient with an iron of 20, TIBC 499, 4% saturation. The patient was transfused 3 units of blood this morning, hemoglobin noted to be 8.8. The patient denies any abdominal pain. He is anxious to go home. FAMILY HISTORY: Noncontributory. Old records are not available for review, but he does report a colonoscopy many years ago. IMPRESSION: 1. The patient has iron-deficiency anemia. 2. GI bleeding. PLAN: Plan is for patient to transfuse to a stable hemoglobin. Would anticipate colonoscopy and EGD prior to discharge. The patient will receive preparation today with anticipated colonoscopy and EGD tomorrow. Followup blood count is advised and transfuse if hemoglobin less than 7.5. Thank you very much. MARCIA GLORIA M.D. WORKING SUPERVISOR WORKING SUPERVISOR D I MT: Ida
[2023-03-23 12:36] LABS: Hematocrit 29.1 % (42.0-52.0); Hemoglobin 8.8 g/dL (14.0-18.0); Mean Corpuscular Hemoglobin 21.7 pg (26-34); Mean Corpuscular Volume 71.7 fl (80-100); Partial Thromboplastin Time 29.9 SECONDS (22.3-36.8); Prothrombin Time 14.2 Seconds (11.1-14.7); Red Blood Count 4.06 M/mm3 (4.6-6.20); White Blood Count 6.2 K/mm3 (4.5-10.0)
[2023-03-23 12:37] LABS: Mean Corpuscular HGB Conc 30.2 g/dl (32-36); Mean Platelet Volume 9.1 fl (7.4-10.4); Platelet Count Result 369 k/mm3 (150-375); Red Cell Distribution Width 22.3 % (11.5-14.5)
[2023-03-23 15:26] LABS: Alanine Aminotransferase 20 U/L (6-50); Albumin Level 3.4 g/dL (3.5-5.1); Alkaline Phosphatase 61 U/L (38-126); Anion Gap 1 mmol/L (8-16); Aspartate Amino Transferase 24 U/L (17-59); Bilirubin,Total 0.9 mg/dL (0.2-1.3); Blood Urea Nitrogen 8 mg/dL (9-20); Calcium 8.5 mg/dL (8.4-10.2); Carbon Dioxide 29 mmol/L (22-30); Chloride 108 mmol/L (98-107); Estimated CRCL calculation 89 ml/min; Estimated Glomerular Filt Rate > 60; Glucose 98 mg/dL (65-110); Potassium 4.4 mmol/L (3.4-5.0); Sodium 138 mmol/L (137-145)
== END 2023-03-22 19:00 | disposition left against medical advice (07) ==
LOC: ANHED 16:41 → ANH3MEDSUR 17:56
PROVIDERS: Physician Assistant; Admitting Provider Hospitalist; Emergency Provider Emergency Medicine; PCP Family Medicine; Visit Provider Hospitalist
DX: D50.0 Iron deficiency anemia secondary to blood loss (chronic) (principal); K62.5 Hemorrhage of anus and rectum; K64.9 Unspecified hemorrhoids; F41.9 Anxiety disorder, unspecified; F12.90 Cannabis use, unspecified, uncomplicated; Z79.899 Other long term (current) drug therapy; F17.290 Nicotine dependence, other tobacco product, uncomplicated; F10.90 Alcohol use, unspecified, uncomplicated
CPT/HCPCS: 36415; 36430; 74177; 80053; 82607; 82728; 82746; 83540; 83550; 84443; 85025; 85027; 85610; 85652; 85730; 86140; 86850; 86900; 86901; 86923; 99285; G0378; G0379; J7050; P9016; Q9967

== ENCOUNTER 2023-03-28 01:18 | Day surgery (SDC) | payer OTHER, SELFPAY ==
[2023-03-24 13:14] VITALS: BMI 25.6
[2023-03-28 11:46] VITALS: BMI 25.4
[2023-03-28 11:48] VITALS: BP 107/58; PULSE 64; RESP 18; TEMP 36.6; O2SAT 100
[2023-03-28] MEDS: LACTATED RINGERS 1,000 ML 150 ML IV CONT (11:49)
--- NOTE | 2023-03-28 11:56 | WPDANESEPPF ---
Anes - Initial Pre Proc Eval Procedure: Operation Date: 03/28/23 13:15 Proposed Procedures p Esophagogastroduodenoscopy & Colonoscopy - Anup Suarez MD s [facility] Hemorrhoid Treatment - Anup Suarez MD Date/Time: 03/28/23 11:56 Surgeon: Anup Suarez MD Pre Op Diagnosis: Iron Deficiency Anemia, anemia, Abdominal pain Patient Data Age: 42 Gender: M Height: 1.73 m Weight: 75.8 kg Last Vital Signs Temp 97.8 F 03/28/23 11:48 Pulse 64 03/28/23 11:48 Resp 18 03/28/23 11:48 BP 107/58 L 03/28/23 11:48 Pulse Ox 100 03/28/23 11:48 O2 Del Method Room Air 03/28/23 11:48 Allergies Allergy/AdvReac Type Severity Reaction Status Date / Time No Known Allergies Allergy Verified 03/28/23 11:45 Home Medications Medication Instructions Recorded Confirmed Type ferrous sulfate 325 mg (65 mg 325 mg PO BID #180 tabs 12/13/22 03/28/23 Rx iron) tablet,delayed release omeprazole 20 mg capsule,delayed 20 mg PO DAILY Acid Reflux 03/21/23 03/28/23 History release Patient hx anesthesia problems: none Family hx anesthesia problems: none Results Review: All pre-operative results and documents have been reviewed as part of the pre-operative evaluation. [facility] Past Medical History Medical History (Updated 03/21/23 @ 23:10 by Laura Corley PA-C) Anxiety Eosinophilic esophagitis Gastroesophageal reflux disease Hemorrhoids History of anal fissures History of hemorrhoids Iron deficiency anemia Osteoarthritis of right shoulder Post-traumatic osteoarthritis, right shoulder SLAP lesion of right shoulder Surgical History Surgical History (Updated 03/21/23 @ 23:00 by Laura Corley PA-C) History of arthroscopy of right shoulder History of lumbar fusion (11/2016) L5-S1. History of removal of pigmented skin lesion Family History Family History Grandparent Family history of Alzheimer's disease Family history of coronary artery disease Mother Patient's mother is in good health Other Family history of ulcerative colitis Social History Social History (Updated 03/21/23 @ 23:08 by Laura Corley PA-C) Social History: Code status: Full code. Smoking packs per day: 1 Smoking cigarettes per day: 20.0 Years smoked: 15 Smoking pack-years: 15.00 Smoking status: Current some day smoker Tobacco type: cigarettes and e-cigarettes/vaping Additional smoking assessment comments: vapes every once in a while Alcohol intake: current Drinks per week: 4 Alcohol use details: beer Substance use: current Substance use type: does not use Other substance usage details: The patient stated that he no longer uses K2 synthetic marijuana. Last use: 03/14/23 Lack of Transportation: No Lack of Food: Never True Current Housing: I Have Housing Concerned About Future Housing: No Difficulty Paying Gas/Electric Bills: No Difficulty Paying for Meds: No Currently Unemployed: No Education: Don't Know Difficulty w/ Childcare or Family Care: No Living arrangements: alone Spiritual care concerns: No Agree to blood products: Yes Anes - Eval Final PreProcedure Day of Procedure 03/28/23 11:56 Patient weight: normal Heart: regular rate and rhythm Lungs: clear to auscultation Airway: Mallampati scale class II Neurological: alert and oriented Last oral intake: >/= 8 hours ASA classification: IV Emergent: no Anesthetic plan: proceed Anesthesia type and monitoring: general GIVS and standard monitoring Results Review: All pre-operative results and documents have been reviewed as part of the pre-operative evaluation. Informed Consent: The patient's anesthetic plan and its attendant risks and benefits were discussed with the patient/family/POA. Questions were solicited and answers provided to the satisfaction of the patient/family/POA.
--- NOTE | 2023-03-28 11:59 | WPDHPUPDATE1 ---
History and Physical Update Update Date/Time: 03/28/23 11:59 History and Physical has been reviewed, including an updated exam of the patient. There are NO changes in the patient's condition. Risks, benefits, and alternatives have been discussed and questions answered. Patient agrees to proceed with procedure.
--- NOTE | 2023-03-28 12:07 | SUR.OPER ---
1207 EGD COMPLETED, COLONOSCOPY STARTED AT 1212
--- NOTE | 2023-03-28 12:24 | W.PM.PROC2 ---
Procedure Note - Detailed Date of Procedure 03/28/23 Pre-op Diagnosis Iron Deficiency Anemia, hemorrhoids Post-op Diagnosis Same Procedure Performed irc of internal hemorrhoids Surgeon Anup Suarez MD Anesthesia MAC (he also had egd and colonoscopy) Description of Procedure anoscope revealed grade II internal hemorrhoids, no bleeding, no fissure, no other lesions. Then advanced IRC probe and hemorrhoids treated at 1.5 seconds x6
[2023-03-28 12:26] VITALS: BP 103/63; PULSE 58; RESP 20; O2SAT 100
[2023-03-28 12:36] VITALS: BP 100/64; PULSE 52; RESP 18; O2SAT 100
[2023-03-28] MEDS: BENZOCAINE (*SP) 60 ML SPRAY CAN (HURRICAINE) 1 SPRAY MUCOUS MEM (12:39)
[2023-03-28 12:46] VITALS: BP 117/72; PULSE 58; RESP 18; O2SAT 100
[2023-03-28 12:56] VITALS: BP 113/78; PULSE 55; RESP 18; O2SAT 100
== END 2023-03-28 13:12 | disposition home or self-care (01) ==
PROVIDERS: PCP Family Medicine; Visit Provider Internal Medicine Gastroenterology
PROC: 0DJ08ZZ Inspection of Upper Intestinal Tract, Via Natural or Artificial Opening Endoscopic (ICD-10-PCS; CPT 43235; principal; 2023-03-28 13:15)
PROC: (CPT 46930; 2023-03-28 13:15)
DX: Z12.11 Encounter for screening for malignant neoplasm of colon (principal); K64.1 Second degree hemorrhoids; K64.4 Residual hemorrhoidal skin tags; D50.9 Iron deficiency anemia, unspecified; K22.70 Barrett's esophagus without dysplasia; K44.9 Diaphragmatic hernia without obstruction or gangrene; K21.9 Gastro-esophageal reflux disease without esophagitis; Z98.1 Arthrodesis status; F17.290 Nicotine dependence, other tobacco product, uncomplicated
CPT/HCPCS: 46930; 45378; 43239; 88305; 88313; J2704; J7120

== ENCOUNTER 2023-03-30 15:31 | Outpatient (CLI) | payer OTHER, SELFPAY ==
[2023-03-30 19:17] LABS: Prothrombin Time 13.9 Seconds (11.1-14.7)
[2023-03-30 19:50] LABS: Hematocrit 24.2 % (42.0-52.0); Mean Corpuscular HGB Conc 28.9 g/dl (32-36); Mean Corpuscular Hemoglobin 21.1 pg (26-34); Mean Corpuscular Volume 73.1 fl (80-100); Mean Platelet Volume 9.9 fl (7.4-10.4); Platelet Count Result 320 k/mm3 (150-375); Red Blood Count 3.31 M/mm3 (4.6-6.20); Red Cell Distribution Width 22.4 % (11.5-14.5)
== END 2023-03-30 15:32 | disposition home or self-care (01) ==
LOC: ANHBWCLAB 15:31
PROVIDERS: PCP Family Medicine; Visit Provider Nurse Practitioner
DX: D50.9 Iron deficiency anemia, unspecified (principal); K92.1 Melena; D64.9 Anemia, unspecified; K92.2 Gastrointestinal hemorrhage, unspecified
CPT/HCPCS: 36415; 85027; 85610

== ENCOUNTER 2023-03-31 10:10 | Emergency (ER) | payer OTHER, SELFPAY ==
[2023-03-31 10:18] VITALS: BP 117/79; PULSE 83; RESP 20; TEMP 36.3; O2SAT 100
--- NOTE | 2023-03-31 10:42 | ED.GENADULT ---
HPI - General Adult General Chief complaint: Recheck/Abnormal Lab/Rx Stated complaint: HGB low Time Seen by Provider: 03/31/23 10:24 History of Present Illness HPI narrative: 42-year-old male presents to the emergency room today for complaints of low hemoglobin. He says that he feels tired but denies having any other symptoms. He did have a couple of syncopal episodes on Monday. He was seen at an outside hospital and given IV fluids. He just had a colonoscopy on Monday. He says that they did not find a bleeding source but did find some internal hemorrhoids. He also has some mild Kinney's esophagus. He is on PPI therapy for this. He says that he does have blood in his stools intermittently. He says sometimes there is none and sometimes there is quite a bit. This has been a recurrent problem for him for a few years now. He has had to get blood transfusions more frequently over the past year, usually about every 3 months. He has not yet seen a cabin supervisor but this is scheduled soon. Related Data Home Medications Medication Instructions Recorded Confirmed omeprazole 20 mg capsule,delayed 20 mg PO DAILY Acid Reflux 03/21/23 03/28/23 release Allergies Allergy/AdvReac Type Severity Reaction Status Date / Time No Known Allergies Allergy Verified 03/28/23 11:45 Review of Systems Review of Systems: CONSTITUTIONAL: Denies fever, chills, or sweats. Reports fatigue EYES: Denies visual changes, redness, or discharge. ENT: Denies rhinorrhea, congestion, sore throat, or otalgia. CARDIOVASCULAR: Denies chest pain, palpitations, or edema. RESPIRATORY: Denies cough or dyspnea. GASTROINTESTINAL: Denies abdominal pain, nausea, vomiting, or diarrhea. Intermittent rectal bleeding GENITOURINARY: Denies dysuria or hematuria. SKIN: Denies rash or itching. MUSCULOSKELETAL: Denies back pain, joint pain, or myalgia. NEUROLOGIC: Denies headache, numbness, dizziness, or weakness. PSYCHIATRIC: Denies anxiety or depression. [facility] Past Medical History Medical History Anxiety Eosinophilic esophagitis Gastroesophageal reflux disease Hemorrhoids History of anal fissures History of hemorrhoids Iron deficiency anemia Osteoarthritis of right shoulder Post-traumatic osteoarthritis, right shoulder SLAP lesion of right shoulder Surgical History Surgical History History of arthroscopy of right shoulder History of lumbar fusion (11/2016) L5-S1. History of removal of pigmented skin lesion Family History Family History Grandparent Family history of Alzheimer's disease Family history of coronary artery disease Mother Patient's mother is in good health Other Family history of ulcerative colitis Social History Social History Social History: Code status: Full code. Smoking packs per day: 1 Smoking cigarettes per day: 20.0 Years smoked: 15 Smoking pack-years: 15.00 Smoking status: Current some day smoker Tobacco type: cigarettes and e-cigarettes/vaping Additional smoking assessment comments: vapes every once in a while Alcohol intake: current Drinks per week: 4 Alcohol use details: beer Substance use: current Substance use type: does not use Other substance usage details: The patient stated that he no longer uses K2 synthetic marijuana. Last use: 03/14/23 Lack of Transportation: No Lack of Food: Never True Current Housing: I Have Housing Concerned About Future Housing: No Difficulty Paying Gas/Electric Bills: No Difficulty Paying for Meds: No Currently Unemployed: No Education: Don't Know Difficulty w/ Childcare or Family Care: No Living arrangements: alone Spiritual care concerns: No Agree to blood products: Yes Exam Narrative: GENERAL
[2023-03-31 11:04] LABS: Basophils Absolute Auto 0.1 K/mm3 (0.0-0.1); Basophils Percent Auto 1.3 % (0.2-1.2); Eosinophils Absolute Auto 0.5 K/mm3 (0-0.3); Eosinophils Percent Auto 8.1 % (0-4.4); Hemoglobin 7.8 g/dL (14.0-18.0); Immature Granulocyte Absolute 0.02 K/mm3 (0.00-0.031); Immature Granulocyte Percent A 0.4 % (0-0.5); Lymphocytes Absolute Auto 1.51 K/mm3 (0.9-3.2); Mean Corpuscular HGB Conc 28.9 g/dl (32-36); Mean Corpuscular Hemoglobin 21.7 pg (26-34); Mean Platelet Volume 9.7 fl (7.4-10.4); Monocytes Absolute Auto 0.6 K/mm3 (0.1-0.6); Monocytes Percent Auto 11.3 % (2.6-8.5); Neutrophils Absolute Auto 2.9 K/mm3 (1.3-6.7); Neutrophils Percent Auto 51.9 % (45.5-73.1); Platelet Count Result 334 k/mm3 (150-375); Red Cell Distribution Width 22.6 % (11.5-14.5); White Blood Count 5.6 K/mm3 (4.5-10.0)
[2023-03-31 11:15] LABS: Anisocytosis 2+ (NORMAL); Hypochromasia 1+ (NORMAL); Microcytosis 1+ (NORMAL); Platelet Estimate Adequate (Adequate); Schistocytes None Seen (NORMAL)
[2023-03-31 11:19] LABS: Alanine Aminotransferase 18 U/L (6-50); Albumin Level 3.6 g/dL (3.5-5.1); Alkaline Phosphatase 60 U/L (38-126); Anion Gap 4 mmol/L (8-16); Aspartate Amino Transferase 26 U/L (17-59); Bilirubin,Total 0.4 mg/dL (0.2-1.3); Blood Urea Nitrogen 12 mg/dL (9-20); Calcium 8.1 mg/dL (8.4-10.2); Carbon Dioxide 29 mmol/L (22-30); Chloride 106 mmol/L (98-107); Estimated CRCL calculation 89 ml/min; Estimated Glomerular Filt Rate > 60; Glucose 102 mg/dL (65-110); Lipase 388 U/L (23-300); Sodium 139 mmol/L (137-145)
[2023-03-31] MEDS: SODIUM CHLORIDE 0.9% IV 1,000 ML 125 ML IV CONT (12:15)
[2023-03-31 12:26] VITALS: BP 111/68; PULSE 60; RESP 22; O2SAT 100
== END 2023-03-31 12:31 | disposition home or self-care (01) ==
PROVIDERS: Emergency Provider Nurse Practitioner Family; PCP Family Medicine
DX: D50.9 Iron deficiency anemia, unspecified (principal); K21.9 Gastro-esophageal reflux disease without esophagitis; F17.210 Nicotine dependence, cigarettes, uncomplicated; F17.290 Nicotine dependence, other tobacco product, uncomplicated
CPT/HCPCS: 36415; 80053; 83690; 83735; 85025; 86850; 86900; 86901; 99283; J7030

== ENCOUNTER 2023-04-03 10:23 | Outpatient (CLI) | payer OTHER, SELFPAY ==
[2023-04-03 18:59] LABS: Basophils Absolute Auto 0.1 K/mm3 (0.0-0.1); Eosinophils Absolute Auto 0.4 K/mm3 (0-0.3); Eosinophils Percent Auto 7.9 % (0-4.4); Hemoglobin 7.6 g/dL (14.0-18.0); Immature Granulocyte Absolute 0.01 K/mm3 (0.00-0.031); Immature Granulocyte Percent A 0.2 % (0-0.5); Lymphocytes Absolute Auto 1.51 K/mm3 (0.9-3.2); Lymphocytes Percent Auto 30.6 % (18.3-44.2); Mean Corpuscular HGB Conc 28.1 g/dl (32-36); Mean Corpuscular Hemoglobin 21.7 pg (26-34); Mean Corpuscular Volume 76.9 fl (80-100); Mean Platelet Volume 9.8 fl (7.4-10.4); Monocytes Absolute Auto 0.6 K/mm3 (0.1-0.6); Monocytes Percent Auto 11.6 % (2.6-8.5); Neutrophils Absolute Auto 2.4 K/mm3 (1.3-6.7); Neutrophils Percent Auto 47.7 % (45.5-73.1); Platelet Count Result 374 k/mm3 (150-375); Red Blood Count 3.51 M/mm3 (4.6-6.20); Red Cell Distribution Width 22.6 % (11.5-14.5); White Blood Count 4.9 K/mm3 (4.5-10.0)
[2023-04-03 19:39] LABS: Platelet Estimate Adequate (Adequate)
[2023-04-03 19:40] LABS: Anisocytosis 3+ (NORMAL); Hypochromasia 2+ (NORMAL); Schistocytes None Seen (NORMAL)
[2023-04-03 19:48] LABS: Iron 15 ug/dL (49-181)
[2023-04-03 19:58] LABS: Alanine Aminotransferase 18 U/L (6-50); Albumin Level 3.7 g/dL (3.5-5.1); Alkaline Phosphatase 67 U/L (38-126); Anion Gap 0 mmol/L (8-16); Aspartate Amino Transferase 33 U/L (17-59); Bilirubin,Total 0.3 mg/dL (0.2-1.3); Blood Urea Nitrogen 9 mg/dL (9-20); Calcium 8.3 mg/dL (8.4-10.2); Carbon Dioxide 31 mmol/L (22-30); Chloride 106 mmol/L (98-107); Estimated Glomerular Filt Rate > 60; Glucose 91 mg/dL (65-110); Sodium 137 mmol/L (137-145)
[2023-04-03 20:25] LABS: Ferritin 9.18 ng/mL (17.9-464)
[2023-04-07 21:17] LABS: Red Blood Cell Folate 939 ng/mL RBC (>280)
== END 2023-04-03 10:24 | disposition home or self-care (01) ==
LOC: ANHBWCLAB 10:24
PROVIDERS: PCP Family Medicine; Visit Provider Nurse Practitioner Adult Health
DX: D64.9 Anemia, unspecified (principal)
CPT/HCPCS: 36415; 80053; 82607; 82728; 82747; 83540; 85025

== ENCOUNTER 2023-04-24 13:34 | Outpatient (CLI) | payer OTHER, SELFPAY ==
[2023-04-24 19:32] LABS: Basophils Absolute Auto 0.1 K/mm3 (0.0-0.1); Basophils Percent Auto 1.8 % (0.2-1.2); Eosinophils Absolute Auto 0.5 K/mm3 (0-0.3); Eosinophils Percent Auto 8.8 % (0-4.4); Hematocrit 36.1 % (42.0-52.0); Hemoglobin 10.5 g/dL (14.0-18.0); Immature Granulocyte Absolute 0.01 K/mm3 (0.00-0.031); Immature Granulocyte Percent A 0.2 % (0-0.5); Lymphocytes Absolute Auto 1.51 K/mm3 (0.9-3.2); Lymphocytes Percent Auto 27.8 % (18.3-44.2); Mean Corpuscular HGB Conc 29.1 g/dl (32-36); Mean Corpuscular Hemoglobin 24.6 pg (26-34); Mean Corpuscular Volume 84.5 fl (80-100); Mean Platelet Volume 10.5 fl (7.4-10.4); Monocytes Absolute Auto 0.5 K/mm3 (0.1-0.6); Monocytes Percent Auto 9.4 % (2.6-8.5); Neutrophils Absolute Auto 2.8 K/mm3 (1.3-6.7); Platelet Count Result 289 k/mm3 (150-375); Red Blood Count 4.27 M/mm3 (4.6-6.20); Red Cell Distribution Width 31.4 % (11.5-14.5); White Blood Count 5.4 K/mm3 (4.5-10.0)
[2023-04-24 20:00] LABS: Iron 57 ug/dL (49-181)
[2023-04-24 20:09] LABS: Percent Iron Saturation 12 % (20-50)
[2023-04-24 20:14] LABS: Anisocytosis 1+ (NORMAL); Hypochromasia 2+ (NORMAL); Platelet Estimate Adequate (Adequate)
[2023-04-24 20:15] LABS: Schistocytes None Seen (NORMAL)
== END 2023-04-24 13:35 | disposition home or self-care (01) ==
PROVIDERS: PCP Family Medicine; Visit Provider Nurse Practitioner Adult Health
DX: D64.9 Anemia, unspecified (principal)
CPT/HCPCS: 36415; 82728; 83540; 83550; 85025

== ENCOUNTER 2023-05-23 04:22 | Day surgery (SDC) | payer OTHER, SELFPAY ==
[2023-05-16 12:53] VITALS: BMI 25.9
--- NOTE | 2023-05-16 12:58 | PC.NURSE ---
Report to the Outpatient Waiting Room, entrance under the green pavilion located off [facility], at time _130pm_ on date _[id number]_. Planned Procedure Time: _330pm_. Time changes happen often and if your time is changed the preop area will call you the afternoon before. - You and your visitor will be asked to self-screen and do not enter if you have any COVID symptoms. - A mask is optional within the hospital at this time. Patients may have clear liquids (water, carbonated beverages, clear teas, apple juice) until 3 hours prior to surgery with a maximum of 20 ounces. - No food from midnight until time of surgery Take the following medications with a SIP of water the morning of surgery: ___Lorazepam if needed. DO NOT STOP ANY OF YOUR OTHER PRESCRIPTION MEDICATIONS PRIOR TO SURGERY ?EXCEPT THE FOLLOWING Medications to discontinue per physician None Date to take last dose Please no make-up, nail guinean, hairspray, perfume, deodorant, or body powder the day of surgery. No jewelry (including any body piercings) or valuables the day of surgery, leave them at home. Please take a shower or bath the night before, or the morning of, surgery with an antibacterial soap. Wear comfortable, loose fitting clothing. - Jewelry must be removed prior to entering the operating room. Rings and piercings that are not removed may be cut off. - The hospital will not accept responsibility for valuables. - Please leave all valuables, including medications, at home the day of surgery. If you are going home after surgery, a licensed bottom hoop driver must drive you home. - NO public transportation without another adult if you receive anesthesia. - We recommend that an adult stay with you for 24 hours following discharge. - We also recommend that you do not drive, make important decision, drink alcoholic beverages, or take any drugs that were not prescribed by your health care provider for at least 24 hours after your discharge time. Follow any additional instructions given to you from your surgeon. If you or anyone in your household have experienced Covid symptoms in the past week, please notify your surgeon or the nurse liaison at the phone number below for possible testing. Telephone instructions given to __Patient___and asked if any additional questions and then verbalized understanding. Patient advised to call surgeon office or pre surgery nurse liaison [phone] if any additional questions.
[2023-05-23] VITALS (7 sets, daily range): BP systolic 103–121; BP diastolic 58–77; PULSE 65–85; RESP 14–18; TEMP 36.6–36.7; O2SAT 100; BMI 26.2
[2023-05-23] MEDS: LACTATED RINGERS 1,000 ML 30 ML IV CONT (13:48)
[2023-05-23] MEDS: ACETAMINOPHEN 500 MG TABLET 1000 MG PO (13:53)
[2023-05-23] MEDS: KETOROLAC 15 MG/ML VIAL (*BKC) IV PUSH (13:53)
--- NOTE | 2023-05-23 14:19 | WPDHPUPDATE1 ---
History and Physical Update Update Date/Time: 05/23/23 14:19 History and Physical has been reviewed, including an updated exam of the patient. There are NO changes in the patient's condition. Risks, benefits, and alternatives have been discussed and questions answered. Patient agrees to proceed with procedure.
--- NOTE | 2023-05-23 14:27 | WPDANESEPPF ---
Anes - Initial Pre Proc Eval Procedure: Operation Date: 05/23/23 15:30 Proposed Procedures p Rectal Exam Under Anesthesia, - Wesley Davila DO s Transanal Hemorrhoid Dearterialization - Wesley Davila DO Date/Time: 05/23/23 14:27 Surgeon: Wesley Davila DO Pre Op Diagnosis: rectal bleeding, grade 2 internal hemorrhoid Patient Data Age: 42 Gender: M Height: 1.73 m Weight: 78.35 kg Last Vital Signs Temp 36.7 C 05/23/23 13:30 Pulse 65 05/23/23 13:30 Resp 18 05/23/23 13:30 BP 117/73 05/23/23 13:30 Pulse Ox 100 05/23/23 13:30 O2 Del Method Room Air 05/23/23 13:30 Allergies Allergy/AdvReac Type Severity Reaction Status Date / Time No Known Allergies Allergy Verified 05/23/23 14:00 Home Medications Medication Instructions Recorded Confirmed Type ferrous sulfate 325 mg (65 mg 325 mg PO BID #180 tabs 12/13/22 05/23/23 Rx iron) tablet,delayed release omeprazole 20 mg capsule,delayed 20 mg PO DAILY Acid Reflux 03/21/23 05/16/23 History release lorazepam 0.5 mg tablet (Ativan) 0.5 mg PO DAILY PRN anxiety #30 04/24/23 05/16/23 Rx tabs Patient hx anesthesia problems: none Family hx anesthesia problems: none Results Review: All pre-operative results and documents have been reviewed as part of the pre-operative evaluation. [facility] Past Medical History Medical History Anxiety Eosinophilic esophagitis Gastroesophageal reflux disease Hemorrhoids History of anal fissures History of hemorrhoids Iron deficiency anemia Osteoarthritis of right shoulder Post-traumatic osteoarthritis, right shoulder SLAP lesion of right shoulder Surgical History Surgical History History of arthroscopy of right shoulder History of lumbar fusion (11/2016) L5-S1. History of removal of pigmented skin lesion Family History Family History Grandparent Family history of Alzheimer's disease Family history of coronary artery disease Mother Patient's mother is in good health Other Family history of ulcerative colitis Social History Social History Social History: Code status: Full code. Smoking packs per day: 1 Smoking cigarettes per day: 20.0 Years smoked: 15 Smoking pack-years: 15.00 Smoking status: Former smoker Tobacco type: cigarettes and e-cigarettes/vaping Smoking end date: 05/16/15 Additional smoking assessment comments: Vapes sparingly Alcohol intake: current Drinks per week: 5 Alcohol use details: beer Substance use: current Substance use type: does not use Other substance usage details: The patient stated that he no longer uses K2 synthetic marijuana. Last use: 03/14/23 Lack of Transportation: No Lack of Food: Never True Current Housing: I Have Housing Concerned About Future Housing: No Difficulty Paying Gas/Electric Bills: No Difficulty Paying for Meds: No Currently Unemployed: No Education: Don't Know Difficulty w/ Childcare or Family Care: No Living arrangements: alone Spiritual care concerns: No Agree to blood products: Yes Anes - Eval Final PreProcedure Day of Procedure 05/23/23 14:27 Patient weight: normal Heart: regular rate and rhythm Lungs: clear to auscultation Airway: Mallampati scale class II Neurological: alert and oriented Last oral intake: >/= 8 hours ASA classification: II Emergent: no Anesthetic plan: proceed Anesthesia type and monitoring: general ETT and standard monitoring Results Review: All pre-operative results and documents have been reviewed as part of the pre-operative evaluation. Informed Consent: The patient's anesthetic plan and its attendant risks and benefits were discussed with the patient/family/POA. Questions were solicited and answ
--- NOTE | 2023-05-23 15:36 | P.OP_ITS ---
Procedure Note - Detailed Date of Procedure 05/23/23 Pre-op Diagnosis rectal bleeding, grade 2 internal hemorrhoid Post-op Diagnosis Same Procedure Performed Multiple hemorrhoid ligation (Transanal hemorrhoid dearterialization procedure) Surgeon Wesley Davila, DO Anesthesia General and Local ( 0.5% bupivacaine with epinephrine) Indications This is a 42-year-old man who presents with recurrent rectal bleeding secondary to internal hemorrhoids. He was experiencing internal hemorrhoid bleeding several years ago and underwent hemorrhoid banding which seemed to help with his symptoms for a couple years. Over the past year he has had recurrent bleeding. He has had colonoscopy and EGD which did not show any other source of bleeding. He continues to have frequent rectal bleeding almost daily. He has had to be transfused in the past secondary to the bleeding. Discussions were made with the patient about treatment options including formal internal and external hemorrhoidectomy verses repeat hemorrhoid banding versus hemorrhoid dearterialization procedure. Patient would like to proceed with transanal hemorrhoid dearterialization procedure. Findings Rectal exam under anesthesia was performed. Patient was found to have fairly large bulky hemorrhoids in the left lateral and right posterior locations. He also had some protruding hemorrhoid tissue in the right anterior area as well. Doppler assistance was used to identify the pulsatile hemorrhoidal vessels in the typical locations at 1, 3, 5, 7, 9, and 11 o'clock. No pexy procedure was done as the hemorrhoid tissue appeared to be too bulky to try to bring back up into the anorectal canal. No other rectal abnormalities were noted. Description of Procedure Procedure as well as risks, benefits, and alternatives were discussed with the p atient. Written consent was obtained and placed in chart prior to procedure. Patient was brought back to surgical suite. He was placed supine hospital stretcher. He was then intubated by the Anesthesia Department. He was then repositioned into prone roseann-knife position and his buttocks were taped apart on each side. His perirectal area was prepped and draped in sterile fashion using Betadine prep. Time-out was done to confirm patient and procedure. Digital rectal exam was initially performed. A Hill-Clifford anoscope was then inserted in the anorectal canal was carefully inspected. Prolapsing internal hemorrhoids were identified, but no other significant abnormalities were noted. The D Doppler anoscope was then inserted. The pulsatile hemorrhoidal vessel was initially identified in the 1 o'clock location. A 2 0 Vicryl rrixzr-po-hmong suture was placed at this location and the suture was tied down to ligate the vessel. This was then repeated in the 3, 5, 7, 9, and 11 o'clock positions. All Doppler signals were easily identified in each location. After completing this portion of the procedure, I then examined the anoderm and anal mucosa for any persistent prolapsing tissue. He had fairly significant external residual hemorrhoid skin tags and some bulky internal hemorrhoid tissue, but this appeared to difficult to try to do a proctoplasty. One final inspection was made around the anal rectal canal and no other abnormalities were noted. 0.5% bupivacaine with epinephrine was infiltrated locally around the anus. The patient was then awakened from anesthesia, extubated, and transferred to recovery. Estimated Blood Loss 5 Complications No immediate complications Condition Stable Disposition Same day [facility] Billing Surgery - Charge Forward: Surgery Billing
[2023-05-23] MEDS: fentaNYL CITRATE INJ (*CRX) 100 MCG/2 ML VIAL 25 MCG IV PUSH ×4 (16:01→16:27)
[2023-05-23] MEDS: oxyCODONE HCL (*CRX) 5 MG TAB IR PO (16:46)
== END 2023-05-23 17:20 | disposition home or self-care (01) ==
PROVIDERS: PCP Family Medicine; Visit Provider Surgery
PROC: (CPT 46948; principal; 2023-05-23 15:30)
PROC: (CPT 46948; 2023-05-23 15:30)
DX: K64.1 Second degree hemorrhoids (principal); K21.9 Gastro-esophageal reflux disease without esophagitis; F41.9 Anxiety disorder, unspecified; D50.9 Iron deficiency anemia, unspecified; Z95.1 Presence of aortocoronary bypass graft; F17.290 Nicotine dependence, other tobacco product, uncomplicated
CPT/HCPCS: 46948; A9270; J1100; J1885; J2250; J2704; J3010; J7120

== ENCOUNTER 2025-01-31 19:40 | Emergency (ER) | payer OTHER, SELFPAY ==
--- NOTE | ~2025-01-31 | CT_ITS ---
CT abdomen pelvis w con Ordering provider: Tevin Pineda MD History: 44 years Male with . abd pain, epigastric pain . Comparison: March 21, 2023 Technique: CT abdomen and pelvis with IV and without oral contrast. Automated exposure control and it erative reconstruction technique were employed. The dose-length product was 387.46 mGy-cm. 100 mL Omn ipaque 350 was given IV. Findings: VISUALIZED LOWER CHEST: Dependent atelectatic changes. UPPER ABDOMINAL ORGANS: Liver: Mild fat infiltration of the liver. Gallbladder: Contracted. Spleen: Normal. Stomach/duodenum: Normal. Pancreas: Normal. Slightly prominent pancreatic duct. Adrenals: Normal. Kidneys: Normal. PELVIC ORGANS: The bladder is underfilled with thickened wall. Evaluation for cystitis advised. BOWEL AND MESENTERY: Colon: No evidence of diverticulitis. Normal appendix. Small Bowel: Normal. No obstruction. Peritoneum/mesentery: No free air or free fluid. No mesenteric lymphadenopathy. Small mesenteric lymp h nodes are noted. RETROPERITONEUM: Mild atheromatous disease of the abdominal aorta. No retroperitoneal lymphadenopat hy. MUSCULOSKELETAL: Superficial soft tissues: A fat-containing bilateral inguinal hernia. Small inguinal lymph nodes are noted. Otherwise, The superficial soft tissues are normal. Bones: Age appropriate degenerative changes of the spine. Postoperative changes at the lumbosacral ar ea with fusion of L5-S1.. IMPRESSION: 1. No evidence of appendicitis, diverticulitis or intestinal obstruction. 2. Mild infiltration of the liver. 3. Slightly prominent pancreatic duct. Follow-up advised. Reviewed, dictated and finalized at location A.
[2025-01-31 19:42] VITALS: BP 147/83; PULSE 56; RESP 16; TEMP 36.3; O2SAT 100
--- OUTSIDE RECORDS SUMMARY | 2025-01-31 19:42 | XMS_ITS | Clinical Summary ---
Author Organization [facility] Address [address] [place] [id number] Care Team Providers Care Art Preparator Name Role Phone Bacilio Nunez MD Primary Care Provider [phone] Social History Tobacco Use Types Packs/Day Years Used Date Smoking Tobacco: Never Assessed Sex and Gender Information Value Date Recorded Sex Assigned at Not on file Legal Sex Male 7:52 PM CDT Gender Identity Not on file Sexual Orientation Not on file Last Filed Vital Signs Vital Sign Reading Time Taken Comments Blood Pressure 116/72 02/06/2017 11:59 AM CDT Pulse 70 02/06/2017 11:59 AM CDT Temperature - - Respiratory Rate - - Oxygen Saturation - - Inhaled Oxygen Concentration - - Weight 77.4 kg (170 lb 9.6 oz) 02/06/2017 11:59 AM CDT Height 172.7 cm (5' 8 ) 02/06/2017 11:59 AM CDT Body Mass Index 25.94 02/06/2017 11:59 AM CDT Plan of Treatment Health Maintenance Due Date Last Done Comments Colorectal Cancer Screening Colonoscopy (10 Years) 1978 Annual Physical 1981 Hepatitis C 1996 DTaP, Tdap and Td Vaccines ( 1 - Tdap) 1997 Hepatitis B Vaccines (1 of 3 - 19+ 3-dose series) 1997 COVID-19 Vaccine (2023-2 5 season) 2024 Meningococcal B Vaccine Aged Out No l onger eligible based on patient's age to complete this topic Meningococcal Vaccine Aged Out No mika angy eligible based on patient's age to complete this topic Pneumococcal Vaccine: Pediat rics (0 to 5 Years) and At-Risk Patients (6 to 49 Years) Aged Out No longer eligible b ased on patient's age to complete this topic RSV Immunizations Under 20 Months Aged Out No longer eligible based on patient's age to complete this topic Care Teams Art Preparator Relationship Specialty Start Date End Date Bacilio Nunez MD PCP - General 02/06/17
--- OUTSIDE RECORDS SUMMARY | 2025-01-31 19:42 | XMS_ITS | Clinical Summary ---
Author Organization [facility] Address [address] [facility] [place] [address] Phone Care Team Providers Care Dental Laboratory Technology Teacher Name Role Phone Provider, None Primary Care Provider Unavailabl e Allergies No known active allergies Medications escitalopram (LEXAPRO) 10 MG Tablet Take 1 Tab by mouth daily. 90 Tab 07/24/2019 Active diclofenac (VOLTAREN) 50 MG Tablet Delayed Response Take 1 Tab by mouth 2 times daily. 30 Tab 07/24/2019 Active Social History Tobacco Use Types Packs/Day Years Used Date Smoking Tobacco: Former Smokeless Tobacco: Never Alcohol Use Standard Drinks/Week Comments Yes 0 (1 standard drink = 0.6 oz pur e alcohol) Sex and Gender Information Value Date Recorded Sex Assigned at Not on file Legal Sex Male 11:31 PM CDT Gender Identity Not on file Sexual Orientation Not on file Last Filed Vital Signs Vital Sign Reading Time Taken Comments Blood Pressure 142/105 07/24/2019 1:38 PM CDT Pulse 82 07/24/2019 1:38 PM CDT Temperature 37.1 C (98.8 F) 07/24/2019 8:55 AM CDT Respiratory Rate 18 07/24/2019 1:38 PM CDT Oxygen Saturation 99% 07/24/2019 1:38 PM CDT Inhaled Oxygen Concentration - - Weight 79.4 kg (175 lb) 07/24/2019 8:55 AM CDT Height 172.7 cm (5' 8 ) 07/24/2019 8:55 AM CDT Body Mass Index 26.61 07/24/2019 8:55 AM CDT Plan of Treatment Health Maintenance Due Date Last Done Comments Hepatitis C Virus (HCV) Screening 1978 TdaP Immunization 1978 Hepatitis B Immunization (1 of 3 - 19+ 3-dose series) 1997 Colonoscopy 2023 Colorectal Cancer Screening 2023 Influenza Immunization (#1) 2024 SARS-COV-2 Immunization ( season) 2024 Respiratory Syncytial Virus (RSV) Immunization (Adult) (1 - 1-dose 75+ series) 2053 Meningococcal Immunization (ACWY) Aged Out No longer eligible based on patient's age to complete this topic Pneumococcal Immunization Combined Aged Out No longer eligible based on patient's age to complete this topic Rotavirus Immunization Aged Out No lo nger eligible based on patient's age to complete this topic Care Teams Dental Laboratory Technology Teacher Relationship Specialty Start Date End Date Provider, None [place] PCP - General 07/24/19
--- OUTSIDE RECORDS SUMMARY | 2025-01-31 19:42 | XMS_ITS | Clinical Summary ---
Author Organization [facility] Address [address] [place] [address] Care Team Providers Care Port Crane Operator Name Role Phone Nathaniel Hebert MD Primary Care Provider [phone] Allergies No known active allergies Medications omeprazole (PriLOSEC) 20 mg Capsule, Delayed Release(E.C.) Take 20 mg by mouth daily. Active ferrous sulfate 325 mg (65 mg iron) Tablet, Delayed Release (E.C.) Take 325 mg by mouth 2 times daily. 03/08/2023 Active Active Problems Problem Noted Date Diagnosed Date Bleeding hemorrhoids 02/09/2018 Coagulopathy 02/09/2018 Family History Relation Name Status Comments Father Alive Mother Alive Sister Alive Son Alive Social History Tobacco Use Types Packs/Day Years Used Date Smoking Tobacco: Former E-Cigarette/Mist Inhalation Device Quit: 2014 Tobacco Cessation:Counseling Given: Not Answered Alcohol Use Standard Drinks/Week Comments Yes 0 (1 standard drink = 0.6 oz pur e alcohol) occasionally Sex and Gender Information Value Date Recorded Sex Assigned at Not on file Legal Sex Male 9:47 AM CDT Gender Identity Not on file Sexual Orientation Not on file Last Filed Vital Signs Vital Sign Reading Time Taken Comments Blood Pressure 115/72 05/30/2023 1:56 PM CDT Pulse 71 05/30/2023 1:56 PM CDT Temperature 37.4 C (99.3 F) 05/30/2023 1:56 PM CDT Respiratory Rate 16 05/30/2023 1:56 PM CDT Oxygen Saturation 100% 05/30/2023 1:56 PM CDT Inhaled Oxygen Concentration - - Weight 78.7 kg (173 lb 6.4 oz) 05/30/2023 1:56 P M CDT Height 172.7 cm (5' 8 ) 05/01/2023 11:20 AM CDT Body Mass Index 26.37 05/01/2023 11:20 AM CDT Plan of Treatment Health Maintenance Due Date Last Done Comments DTAP/TDAP/TD VACCINES (1 - Tdap) 1997 HEPATITIS B VACCINES (1 of 3 - 19+ 3-dose series) 1997 FIT-DNA Q 3 years 2023 FIT/FOBT Q 1 year 2023 INFLUENZA VACCINE (#1) 2024 Flex Sig/CT Colonography Q 5 years 04/18/20282022 COLORECTAL SCREENING 04/18/2033 04/18/2023 Colorectal Cancer Screening 04/18/2033 HPV VACCINES Aged Out No longer eligi ble based on patient's age to complete this topic Insurance Care Teams Port Crane Operator Relationship Specialty Start Date End Date Nathaniel Hebert MD [address] [place] [address] PCP - General Family Practice 05/01/23
--- OUTSIDE RECORDS SUMMARY | 2025-01-31 19:42 | XMS_ITS | Clinical Summary ---
Author Organization [facility] [place] [facility] Address [address] [facility] [place] [address] Care Team Providers Care Bellman Name Role Phone Nathaniel Hebert MD Primary Care Provider [phone] [phone] Allergies No known active allergies Medications omeprazole (PriLOSEC) 20 mg capsule Take 1 capsule (20 mg total) by mouth daily Active ferrous sulfate 325 mg (65 mg of elemental iron) tablet Take 1 tablet (325 mg total) by mouth 2 (two) times a day 03/08/2023 Active hydrocortisone (ANUSOL-HC) 2.5 % rectal cream APPLY RECTALLY TO THE AFFECTED AREA TWICE DAILY 03/21/2023 Active Active Problems Problem Noted Date Diagnosed Date Acute blood loss anemia 04/12/2023 Assessment & Plan (04/14/2023 12:32 PM CDT): Acute blood loss anemia on chronic iron deficiency anemia. Hgb 6.2 on admission, transfused 2u PRBC. Iron panel shows profound iron deficiency. Will give IV iron this admission and resume PO iron on discharge. Patient reports due to see radio engineering teacher in near future, may be able to arrange IV iron as outpatient -Repeat Hgb improved to 8.2 Assessment & Plan (04/12/2023 6:17 PM CDT): Acute blood loss anemia on chronic iron deficiency anemia. Hgb 6.2 on admission, transfused 2u PRBC. Will give IV iron this admission and resume PO iron on discharge. Patient reports due to see radio engineering teacher in near future, may be able to arrange IV iron as outpatient -Monitor CBC Hematochezia 04/12/2023 Assessment & Plan (04/14/2023 12:32 PM CDT): Admitted for further GI w/u as recommended by GI consult. Meckel's scan negative for ectopic gastric tissue Recent reportedly negative EGD/colonoscopy at [facility]. VCE performed yesterday, awaiting results. No evidence of ongoing active bleeding, stable for discharge with outpatient f/u with GI Assessment & Plan (04/12/2023 6:16 PM CDT): Admit for further GI w/u as recommended by GI consult. Meckel's scan performed, awaiting read. Plan for video capsule endoscopy tomorrow per GI, given recent reportedly negative EGD/colonoscopy at [facility]. Surgical History Surgery Date Site/Laterality Comments BACK SURGERY SHOULDER SURGERY COLONOSCOPY UPPER GASTROINTESTINAL ENDOSCOPY HEMORRHOID SURGERY Medical History Medical History Date Comments GERD (gastroesophageal reflux disease) Iron deficiency anemia secondary to blood loss ( chronic) Hematochezia History of blood transfusion Family History Medical History Relation Name Comments No Known Problems Father No Known Problems Mother Relation Name Status Comments Father Mother Social History Tobacco Use Types Packs/Day Years Used Date Smoking Tobacco: Every Day E-cigarettes Smokeless Tobacco: Former Tobacco Cessation:Ready to Q uit: Not Asked; Counseling Given: Not Answered AUDIT-C Answer Date Recorded Q1: How often do you have a drink containing alc ohol? 2-3 times a week 04/18/2023 Q2: How many drinks containi ng alcohol do you have on a typical day when you are drinking? 1 or 2 04/18/2023 Q3: How often do you have si x or more drinks on one occasion? 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 Gender Identity Not on file Sexual Orientation Not on file Obstetrics History Last Filed Vital Signs Vital Sign Reading Time Taken Comments Blood Pressure 118/69 04/18/2023 3:35 PM CDT Pulse 59 04/18/2023 3:35 PM CDT Temperature 36.3 C (97.3 F) 04/18/2023 1:15 PM CDT Respiratory Rate 12 04/18/2023 3:35 PM CDT Oxygen Saturation 100% 04/18/2023 3:35 PM CDT Inhaled Oxygen Concentration - - Weight 77.1 kg (170 lb) 04/18/2023 1:15 PM CDT Height 172.7 cm (5' 8 ) 04/18/2023 1:15 PM CDT Body Mass Index 25.85 04/18/2023 1:15 PM CDT Plan of Treatment Health Maintenance Due Date Last Done Comments Colon Cancer Screening-Colonoscopy 1978 Depression Screening 1978 Hepatitis C Screening 1978 DTaP/Tdap/Td Vaccine (1 - Tdap) 1989 Hepatitis B Screening 1996 Regular Well Visit/Exam 18-64 1996 Pneumococcal vaccine <65 (1 of 2 - PCV) 1997 Influenza Vaccine (#1) 2024 HPV Vaccines Aged Out No longer eligi ble based on patient's age to complete this topic Insurance Advance Directives For more information, please contact: [phone] * Full Code (Latest Code Status on File) Date Activated Date Inactivated Comments 04/18/2023 1:06 PM 04/18/2023 8:09 PM * Full Code Date Activated Date Inactivated Comments 04/12/2023 5:25 PM 04/14/2023 5:07 PM Care Teams Bellman Relationship Specialty Start Date End Date Nathaniel Hebert MD PCP - General Family Practice 03/27/23
--- OUTSIDE RECORDS SUMMARY | 2025-01-31 19:42 | XMS_ITS | Referral Summary ---
Author Organization [facility] [place] [address] [facility] Address [address] [facility] [place] [address] Care Team Providers Care Restorer Paper And Prints Name Role Phone Nathaniel Hebert MD Primary Care Provider [phone] [phone] Allergies No known active allergies Medications omeprazole [...] on discharge. Patient reports due to see facility maintenance manager in near future, may be able to arrange IV iron as outpatient -Repeat Hgb improved to 8.2 Assessment & Plan (04/12/2023 6:17 PM CDT): Acute blood loss anemia on chronic iron deficiency anemia. Hgb 6.2 on admission, transfused 2u PRBC. Will give IV iron this admission and resume PO iron on discharge. Patient reports due to see facility maintenance manager in near future, may be able to arrange IV iron as outpatient -Monitor CBC Hematochezia 04/12/2023 Assessment & Plan (04/14/2023 12:32 PM CDT): Admitted for further GI w/u as recommended by GI consult. Meckel's scan negative for ectopic gastric tissue Recent reportedly negative EGD/colonoscopy at [facility]. VCE performed yesterday, awaiting results. No evidence of ongoing active bleeding, stable for discharge with outpatient f/u with GI Assessment & Plan (04/12/2023 6:16 PM CDT): Admit for further GI w/u as recommended by GI consult. Meckel's scan performed, awaiting read. Plan for video capsule endoscopy tomorrow per GI, given recent reportedly negative EGD/colonoscopy at [facility]. 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
--- OUTSIDE RECORDS SUMMARY | 2025-01-31 20:19 | XMS_ITS | Referral Summary ---
Author Organization [facility] Address [address] [facility] [address] Care Team Providers Care Movie Producer Name Role Phone Nathaniel Hebert MD Primary Care Provider [phone] [phone] Allergies No known active allergies Medications omeprazole [...] on discharge. Patient reports due to see family and marriage counsellor in near future, may be able to arrange IV iron as outpatient -Repeat Hgb improved to 8.2 Assessment & Plan (04/12/2023 6:17 PM CDT): Acute blood loss anemia on chronic iron deficiency anemia. Hgb 6.2 on admission, transfused 2u PRBC. Will give IV iron this admission and resume PO iron on discharge. Patient reports due to see family and marriage counsellor in near future, may be able to arrange IV iron as outpatient -Monitor CBC Hematochezia 04/12/2023 Assessment & Plan (04/14/2023 12:32 PM CDT): Admitted for further GI w/u as recommended by GI consult. Meckel's scan negative for ectopic gastric tissue Recent reportedly negative EGD/colonoscopy at [facility]. VCE performed yesterday, awaiting results. No evidence of ongoing active bleeding, stable for discharge with outpatient f/u with GI Assessment & Plan (04/12/2023 6:16 PM CDT): Admit for further GI w/u as recommended by GI consult. Meckel's scan performed, awaiting read. Plan for video capsule endoscopy tomorrow per GI, given recent reportedly negative EGD/colonoscopy at [facility]. 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
--- OUTSIDE RECORDS SUMMARY | 2025-01-31 20:19 | XMS_ITS | Clinical Summary ---
Author Organization [facility] [place] [address] [facility] Address [address] [facility] [place] [address] Care Team Providers Care Cashiers Supervisor Name Role Phone Nathaniel Hebert MD Primary Care Provider [phone] [phone] Allergies No known active allergies Medications omeprazole [...] on discharge. Patient reports due to see cbx operator in near future, may be able to arrange IV iron as outpatient -Repeat Hgb improved to 8.2 Assessment & Plan (04/12/2023 6:17 PM CDT): Acute blood loss anemia on chronic iron deficiency anemia. Hgb 6.2 on admission, transfused 2u PRBC. Will give IV iron this admission and resume PO iron on discharge. Patient reports due to see cbx operator in near future, may be able to arrange IV iron as outpatient -Monitor CBC Hematochezia 04/12/2023 Assessment & Plan (04/14/2023 12:32 PM CDT): Admitted for further GI w/u as recommended by GI consult. Meckel's scan negative for ectopic gastric tissue Recent reportedly negative EGD/colonoscopy at [facility]. VCE performed yesterday, awaiting results. No evidence of ongoing active bleeding, stable for discharge with outpatient f/u with GI Assessment & Plan (04/12/2023 6:16 PM CDT): Admit for further GI w/u as recommended by GI consult. Meckel's scan performed, awaiting read. Plan for video capsule endoscopy tomorrow per GI, given recent reportedly negative EGD/colonoscopy at [facility]. 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
--- OUTSIDE RECORDS SUMMARY | 2025-01-31 20:19 | XMS_ITS | Clinical Summary ---
Author Organization [facility] Address [address] [place] [address] Phone Care Team Providers Care Tub Washer Name Role Phone Provider, None Primary Care [...] age to complete this topic Care Teams Tub Washer Relationship Specialty Start Date End Date Provider, None [place] PCP - General 07/24/19
--- OUTSIDE RECORDS SUMMARY | 2025-01-31 20:19 | XMS_ITS | Clinical Summary ---
Author Organization [facility] Address [address] [place] [address] Care Team Providers Care Hospice Music Therapist Name Role Phone Nathaniel Hebert MD Primary Care Provider [phone] [phone] Allergies No known active allergies Medications omeprazole [...] to complete this topic Insurance Care Teams Hospice Music Therapist Relationship Specialty Start Date End Date Nathaniel Hebert MD [address] [place] [address] PCP - General Family Practice 05/01/23
--- OUTSIDE RECORDS SUMMARY | 2025-01-31 20:19 | XMS_ITS | Clinical Summary ---
Author Organization [facility] Address [address] [place] [id number] Care Team Providers Care Part Time Name Role Phone Bacilio Nunez MD Primary Care Provider [phone] Social History Tobacco Use Types Packs/Day Years [...] age to complete this topic Care Teams Part Time Relationship Specialty Start Date End Date Bacilio Nunez MD PCP - General 02/06/17
--- NOTE | 2025-01-31 20:21 | ED_ITS ---
HPI - Abdominal Pain General Chief Complaint: Abdominal Pain Stated Complaint: abdominal pain Time Seen by Provider: 01/31/25 19:55 History of Present Illness HPI narrative: 44-year-old male with a past medical history including gastritis, rectal bleeding needing transfusion, internal hemorrhoids requiring hemorrhoidectomy. Patient has a history of iron deficiency anemia from all of this. Patient presents to the emergency room with chief complaint of intense epigastric discomfort as well as some intermittent rectal bleeding. Exam is related to his hemorrhoids. Denies any blood thinner use. Denies any nausea, vomiting, diarrhea. States he gets early satiety with meals now. Denies any weight loss, fever, chills, back pain. No chest pain or chest discomfort. No shortness of breaths. He was otherwise in his normal state of health. Related Data Home Medications ?Medication ?Instructions ?Recorded ?Confirmed ?Last Taken ?Type omeprazole 20 mg capsule,delayed 20 mg PO DAILY Acid Reflux 03/21/23 07/04/23 03/26/23 History release Allergies Allergy/AdvReac Type Severity Reaction Status Date / Time No Known Allergies Allergy Verified 01/31/25 19:41 Review of Systems 2 Review of Systems: As [facility] Past Medical History Medical History Iron deficiency anemia History of hemorrhoids Gastroesophageal reflux disease Hemorrhoids History of anal fissures Eosinophilic esophagitis Anxiety SLAP lesion of right shoulder Post-traumatic osteoarthritis, right shoulder Osteoarthritis of right shoulder Surgical History Surgical History History of arthroscopy of right shoulder History of removal of pigmented skin lesion History of lumbar fusion (11/2016) L5-S1. Family History Family History Grandparent Family history of Alzheimer's disease Family history of coronary artery disease Mother Patient's mother is in good health Other Family history of ulcerative colitis Social History Social History Social History: Code status: Full code. Smoking packs per day: 1 Smoking cigarettes per day: 20.0 Years smoked: 15 Smoking pack-years: 15.00 Smoking status: Former smoker Tobacco type: cigarettes and e-cigarettes/vaping Smoking end date: 05/16/15 Additional smoking assessment comments: Vapes sparingly Alcohol intake: current Drinks per week: 5 Alcohol use details: beer Substance use: current Substance use type: does not use Other substance usage details: The patient stated that he no longer uses K2 synthetic marijuana. Last use: 03/14/23 Lack of Transportation: No Lack of Food: Never True Current Housing: I Have Housing Concerned About Future Housing: No Difficulty Paying Gas/Electric Bills: No Difficulty Paying for Meds: No Currently Unemployed: No Education: Don't Know Difficulty w/ Childcare or Family Care: No Living arrangements: alone Spiritual care concerns: No Agree to blood products: Yes Exam 2 Narrative: GENERAL: [Well-appearing, well-nourished, and in no acute distress.] HEAD: [Normocephalic, atraumatic.] EYES: [PERRLA and EOMI.] ENT: Nares clear, no rhinorrhea or epistaxis. Mucous membranes moist. NECK: Supple. CHEST: [Clear to auscultation. No respiratory distress.] HEART: [Regular rate and rhythm]. No murmur heard. [Normal peripheral pulses.] ABDOMEN: [Soft, nondistended], minimally tender in the epigastrium but no overlying skin changes, [No rigidity or guarding] EXTREMITIES: Normal range of motion. [No edema.] SKIN: Warm, dry, no rash. NEURO: [No focal deficits]. Alert and oriented [x3.] PSYCH: [Normal mood and affect.] Course Vital Signs Vital signs: Vital Signs Temperature 36.3 C L 01/31/25 19:42 Pulse Rate 56 L 01/31/25 19:42 Respiratory Rate 16 01/31/25 19:42 Blood Pressure 147/83 H 01/31/25 19:42 Pulse Oximetry 100 01/31/25 19:42 Oxygen Delivery Room Air 01/31/25 19:42 Temperature 36.3 C L 01/31/25 19:42 Pulse Rate 56 L 01/31/25 19:42 Respiratory Rate 16 01/31/25 19:42 Blood Pressure 147/83 H 01/31/25 19:42 Pulse Oximetry 100 01/31/25 19:42 Oxygen Delivery Room Air 01/31/25 19:42 MDM - Abdominal Pain MDM Narrative Medical decision making narrative: 44-year-old male with a history of GI bleeding from internal hemorrhoids, gastritis, GERD. He presents to the emergency department with complaints of epigastric abdominal discomfort as well as intermittent rectal bleeding. He states it has been going on for last 6 weeks. Denies any fever, chills, nausea, vomiting, syncope, chest pain, chest pressure. No active rectal bleeding today. Has not followed up with his primary doctor, GI doctor or general surgeon that did his hemorrhoidectomy 2 years ago. His vital signs are reassuring without any significant disturbances. No tachycardia, fever, hypoxia her normal blood pressure. He is not in any acute distress with minimal tenderness on examination in the epigastrium. Suspicion presently is for gastritis, gastroenteritis, upper GI bleed, potential for diverticular bleed versus rectal hemorrhoid bleed. Laboratory studies were obtained including CBC, CMP, PT, PTT, urinalysis. CT scan of the abdomen pelvis with contrast was obtained. He was given Pepcid, Maalox and Zofran as well as a fluid bolus. Laboratory studies showed no leukocytosis or anemia. Normal platelet count. Electrolytes are unremarkable. Normal BUN and creatinine, normal glucose, normal LFTs. Urinalysis shows no blood or infection. CT of the abdomen pelvis shows no appendicitis, diverticulitis, intestinal obstruction. Slight fatty infiltration of the liver and prominent pancreatic duct with advised follow-up. Patient was re-evaluated with improvement symptom control. He was made aware of his workup and CT findings and will be referred to a GI doctor for outpatient evaluation and treatment. Patient was comfortable with this plan and safely discharged home with as needed medications. Medical Records Attestation: I reviewed the patient's medical records. Lab Data Attestation: I reviewed the patient's lab results. 01/31/25 20:18 01/31/25 20:18 Labs: Lab Results 01/31/25 Range/Units 20:18 WBC 9.0 (4.5-10.0) K/mm3 RBC 4.62 (4.6-6.20) M/mm3 Hgb 14.3 (14.0-18.0) g/dL Hct 43.1 (42.0-52.0) % MCV 93.3 (80-100) fl MCH 31.0 (26-34) pg MCHC 33.2 (32-36) g/dl RDW 13.0 (11.5-14.5) % Plt Count 263 (150-375) k/mm3 MPV 9.5 (7.4-10.4) fl Immature Gran % (Auto) 0.1 (0-0.5) % Neut % (Auto) 59.5 (45.5-73.1) % Lymph % (Auto) 28.0 (18.3-44.2) % [place] % (Auto) 8.9 H (2.6-8.5) % Eos % (Auto) 2.8 (0-4.4) % Baso % (Auto) 0.7 (0.2-1.2) % Lymph # (Auto) 2.51 (0.9-3.2) K/mm3 [place] # (Auto) 0.8 H (0.1-0.6) K/mm3 Eos # (Auto) 0.3 (0-0.3) K/mm3 Baso # (Auto) 0.1 (0.0-0.1) K/mm3 Abs Immat Gran (auto) 0.01 (0.00-0.031) K/mm3 Absolute Neuts (auto) 5.3 (1.3-6.7) K/mm3 Absolute Nucleated RBC 0.000 (0.0-0.012) K/mm3 Nucleated RBC % 0.0 (0.0-0.2) % Sodium 136 L (137-145) mmol/L Potassium 3.7 (3.4-5.0) mmol/L Chloride 103 (98-107) mmol/L Carbon Dioxide 25 (22-30) mmol/L Anion Gap 8 (4-12) mmol/L BUN 10 (9-20) mg/dL Creatinine 0.96 (0.7-1.3) mg/dL Estim Creat Clear Calc 82 ml/min Estimated GFR > 60 (59 - ) Glucose 107 (65-110) mg/dL Calcium 8.7 (8.4-10.2) mg/dL Total Bilirubin 1.0 (0.2-1.3) mg/dL AST 26 (17-59) U/L ALT 25 (6-50) U/L Alkaline Phosphatase 65 (38-126) U/L Total Protein 7.0 (6.3-8.2) g/dL Albumin 4.4 (3.5-5.1) g/dL Lipase 181 (23-300) U/L Urine Color Yellow (Yellow) Urine Appearance Clear (Clear) Urine pH 6.0 (5.0-9.0) Ur Specific [place] 1.003 (1.001-1.035) Urine Protein Negative (Negative) mg/dL Urine Glucose (UA) Negative (Negative) mg/dL Urine Ketones Negative (Negative) mg/dL Ur Blood (Man) Negative (Negative) Urine Nitrate Negative (Negative) Urine Bilirubin Negative (Negative) Urine Urobilinogen 0.2 (<2.0) mg/dL Leukocyte Esterase Rfl Negative (Negative) DANK/UL Imaging Data Attestation: I personally reviewed and interpreted this imaging study as follows: My impression: Impressions Abdomen/Pelvis CT 01/31/25 21:01 IMPRESSION: 1. No evidence of appendicitis, diverticulitis or intestinal obstruction. 2. Mild infiltration of the liver. 3. Slightly prominent pancreatic duct. Follow-up advised. Radiologist's impression: ITS Impressions Abdomen/Pelvis CT 01/31/25 21:01 IMPRESSION: 1. No evidence of appendicitis, diverticulitis or intestinal obstruction. 2. Mild infiltration of the liver. 3. Slightly prominent pancreatic duct. Follow-up advised. Discharge Plan Discharge Clinical Impression: Abdominal pain, GERD (gastroesophageal reflux disease), Hemorrhoids Patient Disposition: Home Condition: Stable Instructions: Antibiotic Form, Abdominal Pain (ED) Additional Instructions: Your laboratory studies are all normal. You have a normal hemoglobin are not bleeding significantly. Your CT scan shows nothing active in your abdomen or pelvis. You have some fatty liver disease that needs to be followed up with. We will refer you to a GI doctor to establish care and obtain new endoscopy for further evaluation of your symptoms. We will send you home with some medications to try for symptom control. Return with any new or emergent concerns. Patient Language: Kiswahili Prescriptions: New famotidine [Pepcid] 20 mg tablet 20 mg PO BID Qty: 20 0RF alum-mag hydroxide-simeth [Maalox Advanced] 200-200-20 mg/5 mL suspension 15 ml PO QID PRN (Reason: GI bleeding prophylaxis) Qty: 3000 0RF Rx Instructions: administer between meals and at bedtime No Action ferrous sulfate 325 mg (65 mg iron) tablet,delayed release (DR/EC) 325 mg PO BID Qty: 180 1RF hydrocortisone [Anusol-HC] 2.5 % cream with perineal applicator 1 applic RECTAL BID 14 Days Qty: 30 1RF citalopram 20 mg tablet 20 mg PO DAILY Qty: 90 1RF omeprazole 20 mg capsule,delayed release(/EC) 20 mg PO DAILY Follow-up/Referrals: Anup Suarez MD [Physician] - 1 Week (GI follow-up, internal hemorrhoids and gastritis. No recent endoscopy) Rachel Grace APRN [Primary Care Provider] - Time of Disposition: 21:31
[2025-01-31 20:24] LABS: Basophils Absolute Auto 0.1 K/mm3 (0.0-0.1); Basophils Percent Auto 0.7 % (0.2-1.2); Eosinophils Absolute Auto 0.3 K/mm3 (0-0.3); Eosinophils Percent Auto 2.8 % (0-4.4); Hematocrit 43.1 % (42.0-52.0); Hemoglobin 14.3 g/dL (14.0-18.0); Immature Granulocyte Absolute 0.01 K/mm3 (0.00-0.031); Immature Granulocyte Percent A 0.1 % (0-0.5); Lymphocytes Absolute Auto 2.51 K/mm3 (0.9-3.2); Mean Corpuscular HGB Conc 33.2 g/dl (32-36); Mean Corpuscular Volume 93.3 fl (80-100); Mean Platelet Volume 9.5 fl (7.4-10.4); Monocytes Absolute Auto 0.8 K/mm3 (0.1-0.6); Monocytes Percent Auto 8.9 % (2.6-8.5); Neutrophils Absolute Auto 5.3 K/mm3 (1.3-6.7); Neutrophils Percent Auto 59.5 % (45.5-73.1); Platelet Count Result 263 k/mm3 (150-375); Red Blood Count 4.62 M/mm3 (4.6-6.20)
[2025-01-31 20:30] LABS: Add Urine Microscopic? NO; Appearance Urine Clear (Clear); Bilirubin Urine Negative (Negative); Blood Urine Negative (Negative); Color Urine Yellow (Yellow); Glucose Urine UA Negative (Negative); Ketones Urine Negative (Negative); Leukocyte Esterase Ur Negative LEU/UL (Negative); Nitrate Urine Negative (Negative); Protein Urine Negative (Negative); Specific Grav Ur 1.003 (1.001-1.035); Urobilinogen Urine 0.2 mg/dL (<2.0)
[2025-01-31 20:35] LABS: Alanine Aminotransferase 25 U/L (6-50); Albumin Level 4.4 g/dL (3.5-5.1); Alkaline Phosphatase 65 U/L (38-126); Anion Gap 8 mmol/L (4-12); Aspartate Amino Transferase 26 U/L (17-59); Blood Urea Nitrogen 10 mg/dL (9-20); Calcium 8.7 mg/dL (8.4-10.2); Carbon Dioxide 25 mmol/L (22-30); Chloride 103 mmol/L (98-107); Estimated CRCL calculation 82 ml/min; Estimated Glomerular Filt Rate > 60; Glucose 107 mg/dL (65-110); Lipase 181 U/L (23-300); Potassium 3.7 mmol/L (3.4-5.0); Sodium 136 mmol/L (137-145)
[2025-01-31] MEDS: LACTATED RINGERS 1,000 ML 999 ML IV CONT (20:49)
[2025-01-31] MEDS: MAG HYDROX/AL HYDROX/SIMETH 30 ML UDC PO (20:50)
[2025-01-31] MEDS: FAMOTIDINE 20 MG/2 ML VIAL IV PUSH (20:52)
[2025-01-31] MEDS: ONDANSETRON INJ 4 MG/2 ML VIAL IV PUSH (20:52)
== END 2025-01-31 21:50 | disposition home or self-care (01) ==
PROVIDERS: Emergency Provider Student in an Organized Health Care Education/Training Program; PCP Nurse Practitioner Adult Health
DX: R10.13 Epigastric pain (principal); K21.9 Gastro-esophageal reflux disease without esophagitis; K64.9 Unspecified hemorrhoids; D50.9 Iron deficiency anemia, unspecified; M19.111 Post-traumatic osteoarthritis, right shoulder; T14.90XS Injury, unspecified, sequela; F41.9 Anxiety disorder, unspecified; F17.290 Nicotine dependence, other tobacco product, uncomplicated; Z98.1 Arthrodesis status; K76.0 Fatty (change of) liver, not elsewhere classified; Z79.899 Other long term (current) drug therapy; X58.XXXS Exposure to other specified factors, sequela
CPT/HCPCS: 36415; 74177; 80053; 81003; 83690; 85025; 96361; 96374; 96375; 99284; A9270; J2405; J7120; Q9967

== ENCOUNTER 2025-02-13 11:38 | Outpatient (CLI) | payer OTHER, SELFPAY ==
--- OUTSIDE RECORDS SUMMARY | 2025-02-13 11:41 | XMS_ITS | Referral Summary ---
Author Organization [facility] [place] [address] [facility] Address [address] [facility] [place] [address] Care Team Providers Care Labor Custodian Name Role Phone Nathaniel Hebert MD Primary Care Provider [phone] Allergies No known active allergies Medications omeprazole [...] on discharge. Patient reports due to see legal secretary receptionist in near future, may be able to arrange IV iron as outpatient -Repeat Hgb improved to 8.2 Assessment & Plan (04/12/2023 6:17 PM CDT): Acute blood loss anemia on chronic iron deficiency anemia. Hgb 6.2 on admission, transfused 2u PRBC. Will give IV iron this admission and resume PO iron on discharge. Patient reports due to see legal secretary receptionist in near future, may be able to arrange IV iron as outpatient -Monitor CBC Hematochezia 04/12/2023 Assessment & Plan (04/14/2023 12:32 PM CDT): Admitted for further GI w/u as recommended by GI consult. Meckel's scan negative for ectopic gastric tissue Recent reportedly negative EGD/colonoscopy at [facility]. VCE performed yesterday, awaiting results. No evidence of ongoing active bleeding, stable for discharge with outpatient f/u with GI Assessment & Plan (04/12/2023 6:16 PM CDT): Admit for further GI w/u as recommended by GI consult. Meckel's scan performed, awaiting read. Plan for video capsule endoscopy tomorrow per GI, given recent reportedly negative EGD/colonoscopy at [facility]. 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
--- OUTSIDE RECORDS SUMMARY | 2025-02-13 11:41 | XMS_ITS | Clinical Summary ---
Author Organization [facility] Address [address] [place] [address] Phone Care Team Providers Care Dials Inspector Name Role Phone Provider, None Primary Care [...] age to complete this topic Care Teams Dials Inspector Relationship Specialty Start Date End Date Provider, None [place] PCP - General 07/24/19
--- OUTSIDE RECORDS SUMMARY | 2025-02-13 11:41 | XMS_ITS | Clinical Summary ---
Author Organization [facility] [place] [address] [facility] Address [address] [place] [address] Care Team Providers Care Transportation Assistant Name Role Phone Nathaniel Hebert MD Primary Care Provider [phone] Allergies No known active allergies Medications omeprazole [...] on discharge. Patient reports due to see tool coordinator in near future, may be able to arrange IV iron as outpatient -Repeat Hgb improved to 8.2 Assessment & Plan (04/12/2023 6:17 PM CDT): Acute blood loss anemia on chronic iron deficiency anemia. Hgb 6.2 on admission, transfused 2u PRBC. Will give IV iron this admission and resume PO iron on discharge. Patient reports due to see tool coordinator in near future, may be able to arrange IV iron as outpatient -Monitor CBC Hematochezia 04/12/2023 Assessment & Plan (04/14/2023 12:32 PM CDT): Admitted for further GI w/u as recommended by GI consult. Meckel's scan negative for ectopic gastric tissue Recent reportedly negative EGD/colonoscopy at [facility]. VCE performed yesterday, awaiting results. No evidence of ongoing active bleeding, stable for discharge with outpatient f/u with GI Assessment & Plan (04/12/2023 6:16 PM CDT): Admit for further GI w/u as recommended by GI consult. Meckel's scan performed, awaiting read. Plan for video capsule endoscopy tomorrow per GI, given recent reportedly negative EGD/colonoscopy at [facility]. 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 Gender Identity Not on file Sexual Orientation [...] of 2 - PCV) 1997 Influenza Vaccine (Season Ended) 2025 HPV Vaccines Aged Out No longer eligi ble based on patient's age to complete this topic Insurance Advance Directives For more information, please contact: [phone] * Full Code (Latest Code Status on File) Date Activated Date Inactivated Comments 04/18/2023 1:06 PM 04/18/2023 8:09 PM * Full Code Date Activated Date Inactivated Comments 04/12/2023 5:25 PM 04/14/2023 5:07 PM Care Teams Transportation Assistant Relationship Specialty Start Date End Date Nathaniel Hebert MD PCP - General Family Practice 03/27/23
--- OUTSIDE RECORDS SUMMARY | 2025-02-13 11:41 | XMS_ITS | Clinical Summary ---
Author Organization [facility] Address [address] [place] [address] Care Team Providers Care Shellfish Dredge Operator Name Role Phone Nathaniel Hebert MD Primary Care Provider [phone] Allergies No known active allergies Medications omeprazole [...] to complete this topic Insurance Care Teams Shellfish Dredge Operator Relationship Specialty Start Date End Date Nathaniel Hebert MD [address] [place] [address] PCP - General Family Practice 05/01/23
--- OUTSIDE RECORDS SUMMARY | 2025-02-13 11:41 | XMS_ITS | Clinical Summary ---
Author Organization [facility] Address [address] [place] [id number] Care Team Providers Care Kitchen Help Handyman Name Role Phone Bacilio Nunez MD Primary Care Provider [phone] Social History Tobacco Use Types Packs/Day Years [...] age to complete this topic Care Teams Kitchen Help Handyman Relationship Specialty Start Date End Date Bacilio Nunez MD PCP - General 02/06/17
[2025-02-13 20:41] LABS: Prostate Specific Antigen 0.7 ng/mL (< OR = 4.0)
== END 2025-02-13 11:39 | disposition home or self-care (01) ==
PROVIDERS: PCP Nurse Practitioner Adult Health; Visit Provider Nurse Practitioner Adult Health
DX: R39.9 Unspecified symptoms and signs involving the genitourinary system (principal); Z12.5 Encounter for screening for malignant neoplasm of prostate
CPT/HCPCS: 36415; 84153

== ENCOUNTER 2025-04-02 09:45 | Outpatient (CLI) | payer OTHER, SELFPAY ==
--- NOTE | ~2025-04-02 | XR_ITS ---
EXAM/ PROCEDURE: XR lumbar spine 2-3V - 04/02/2025 9:48 CDT HISTORY: 44 years old Male with low back pain x 4 days, fusion in 2017 COMPARISON: None available TECHNIQUE: Three view(s) FINDINGS/ IMPRESSION: Postsurgical changes are seen at L5-S1. There are no fractures or dislocations.Multilevel degenerative changes are seen. Reviewed, dictated and finalized at location A.
== END 2025-04-02 09:46 | disposition home or self-care (01) ==
LOC: ANHBWCIMG 09:46
PROVIDERS: PCP Nurse Practitioner Adult Health; Visit Provider Nurse Practitioner Adult Health
DX: M54.9 Dorsalgia, unspecified (principal)
CPT/HCPCS: 72100